=== PATIENT | male | born 1965 | race Caucasian/White ===

== ENCOUNTER → 2023-12-03 12:30 | Outpatient (REF) | payer BC, SELFPAY | LOC: MRI 3T 12:30 | PROVIDERS: ATTENDING PHYSICIAN Specialist | DX: C61 Malignant neoplasm of prostate (principal) | CPT/HCPCS: 72197; A9575 ==

== ENCOUNTER 2024-05-10 06:13 | Day surgery (SDC) | payer BC, SELFPAY ==
[2024-05-02 08:52] VITALS: BMI 28.3
[2024-05-02 10:19] LABS: Hematocrit 46.2 % (39.0-52.0); Hemoglobin 16.1 g/dL (13.0-18.0); Mean Corp Hgb Conc. 34.8 g/dL (33.0-37.0); Mean Corpuscular Hgb 30.4 pg (27.0-31.0); Mean Corpuscular Volume 87.2 fL (80.0-94.0); Mean Platelet Volume 8.8 fL (7.4-10.4); Platelet Count 224 10^3/uL (130-400); White Blood Cell Count 4.9 10^3/uL (4.8-10.8)
[2024-05-02 10:20] LABS: Urine Albumin Negative (Neg - Trace); Urine Bilirubin Negative (Negative); Urine Character Clear (Clear); Urine Color Yellow; Urine Glucose Negative (Negative); Urine Ketone Trace (Negative); Urine Leukocyte Negative (Negative); Urine Nitrite Negative (Negative); Urine Occult Blood Negative (Negative); Urine Specific Gravity 1.025 (<1.030); Urine Urobilinogen Negative (Neg - 1+)
[2024-05-02 10:31] LABS: APTT 28.5 Sec (23.4-35.0); INR 1.08; PT 13.8 Sec (11.4-14.6)
[2024-05-02 10:52] LABS: Blood Urea Nitrogen 24 mg/dl (9-20); Calcium 9.4 mg/dl (8.4-10.2); Carbon Dioxide 29 mmol/L (22-30); Chloride 101 mmol/L (98-107); Estimated Creatinine Clearance 95 ml/min; Glucose 104 mg/dl (70-99); Potassium 4.5 mmol/L (3.5-5.1); Sodium 140 mmol/L (135-145); eGFR > 60.00
--- NOTE | 2024-05-05 09:25 | CM ---
Patient is scheduled for a Robotic Prostatectomy on 05/10/24. Spoke with patient prior to surgery via telephone to complete case management assessment and assess for discharge planning needs. Patient reports that he lives with his in a two story
home. There are no steps to enter and a flight of steps to the second floor. The is a full bathroom on the first floor He currently functions independently. He has no DME and has never had VN services. He has a prescription plan and uses [facility] in
[facility].
Patient is currently in between PCP's and is seeing a PA at [facility] (Tova Scruggs, [place] [phone]). he has an appointment in July with a new PCP.
Discussed discharge plans. Patient plans to return home at discharge. He states that he will have support from his when he goes home. Discussed possible need for VN services and he would be in agreement with these services; he has no preference
for an agency to provide services.
[2024-05-10] VITALS (13 sets, daily range): BP systolic 10–134; BP diastolic 64–85; BMI 28.3
[2024-05-10] MEDS: NEOMYCIN ENEMA 1 BOTTLE RECTAL (06:42)
[2024-05-10] MEDS: NORMOSOL-R 1000 IV ×3 (06:42→22:00)
--- NOTE | 2024-05-10 14:31 | PTCARENOTE ---
Patient received from PACU in bed; Patient on 2L NC with oxygen saturation of 97%, patient transitioned to room air with oxygen saturation of 95%; Patient states pain is mild and acceptable for him; Patient denies nausea/vomiting; Left lower
quadrant GOLDEN drain with sanguinous output, dressing intact; Four lap sites with xeroform, telfa pad, and tegaderm with scant serosanguineous output; Patient drowsy but awakes to voice; Patient alert to self, place, and time; Call freitas within reach;
Bed in lowest position, wheels locked; Assessment ongoing
[2024-05-10] MEDS: COLACE 100 MG PO (16:02)
[2024-05-10] MEDS: TORADOL 15 MG IV ×2 (17:39→23:39)
[2024-05-10] MEDS: POLYSPORIN/DOUBLE ANTIBIOTIC 1 APPLIC TOPICAL (20:25)
[2024-05-11 03:51] VITALS: BP 110/59
[2024-05-11 05:53] LABS: Hematocrit 34.1 % (39.0-52.0); Hemoglobin 12.4 g/dL (13.0-18.0); Mean Corp Hgb Conc. 36.4 g/dL (33.0-37.0); Mean Corpuscular Hgb 30.8 pg (27.0-31.0); Mean Corpuscular Volume 84.8 fL (80.0-94.0); Mean Platelet Volume 9.1 fL (7.4-10.4); Platelet Count 204 10^3/uL (130-400); Red Blood Cell Count 4.02 10^6/uL (4.70-6.10); Red Cell Dist. Width 11.9 % (11.5-14.5); White Blood Cell Count 9.5 10^3/uL (4.8-10.8)
[2024-05-11] MEDS: NORMOSOL-R 1000 IV (06:00)
[2024-05-11] MEDS: TORADOL 15 MG IV (06:00)
[2024-05-11 06:08] LABS: Blood Urea Nitrogen 18 mg/dl (9-20); Calcium 8.1 mg/dl (8.4-10.2); Carbon Dioxide 27 mmol/L (22-30); Chloride 103 mmol/L (98-107); Estimated Creatinine Clearance 119 ml/min; Glucose 138 mg/dl (70-99); Potassium 4.4 mmol/L (3.5-5.1); Sodium 136 mmol/L (135-145); eGFR > 60.00
[2024-05-11] MEDS: COLACE 100 MG PO (07:20)
[2024-05-11] MEDS: CRESTOR 10 MG PO (07:20)
[2024-05-11] MEDS: ZESTRIL 10 MG PO (07:20)
[2024-05-11] MEDS: POLYSPORIN/DOUBLE ANTIBIOTIC 1 APPLIC TOPICAL (07:20)
[2024-05-11 07:54] VITALS: BP 117/69
--- NOTE | 2024-05-11 09:06 | W.PN.URO.CBU ---
Today's Communication / Plan
-
discharge
Assessment / Plan
-
stable
Diagnosis
-
Date of Service: May 11, 2024
-
Patient Diagnosis: prostate cancer
Post Op Day: 1 s/p robotic prostatectomy
Subjective
-
expected abd/pelvic discomfort
Objective
-
Vital Signs
Temp Pulse Resp BP Pulse Ox
98.7 F 70 18 117/69 98
05/11/24 07:54 05/11/24 07:54 05/11/24 07:54 05/11/24 07:54 05/11/24 07:54
Intake and Output
05/10/24 05/11/24 05/12/24
06:59 06:59 06:59
Intake Total 3800 / 3800
Output Total 4115 / 4115
Balance -315 / -315
Intake:
Oral fluids 1600 / 1600
IV fluids (Total) 2200 / 2200
normosol 200 / 200
Output:
Drain Output (Total) 165 / 165
Left Lower Abdomen J Carlos- 165 / 165
Varma
Urine, Quesada 3950 / 3950
Laboratory Results
05/11/24 05:07
05/11/24 05:07
Physical Exam
-
General - well developed, well nourished, no acute distress
Chest - clear bilaterally
Abdomen - soft, positive bowel sounds; GOLDEN --> removed
Genitalia - yellow urine via Quesada
--- NOTE | 2024-05-11 09:51 | CM ---
Reviewed the chart notes. Patient for discharge to home today. Spouse will provide transportation. [facility] will follow.
Gisselle
[2024-05-11 19:50] LABS: Hepatitis C Antibody Negative (Negative)
== END 2024-05-11 11:12 | disposition home or self-care (01) ==
LOC: SDS 06:13
PROVIDERS: ATTENDING PHYSICIAN Specialist
DX: C61 Malignant neoplasm of prostate (principal)
CPT/HCPCS: 55866; 38571; 51990; 88305; 88307; 88309; 36415; 80048; 81003; 85027; 85610; 85730; 86803; 93005; C1729

== ENCOUNTER 2024-05-20 18:34 | Inpatient (IN) | payer BC, SELFPAY ==
[2024-05-20] VITALS (7 sets, daily range): BP systolic 103–121; BP diastolic 64–78; BMI 28.5; BMI 27.9
--- NOTE | 2024-05-20 12:18 | ED.GENMED ---
History of Present Illness
General
Chief Complaint: Male Genito-Urinary Symptoms
Time Seen by Provider: 05/20/24 12:07
History of Present Illness
History of Present Illness:
58-year-old male presents the emergency department for evaluation of lower abdominal pain, fever, and inability to empty his bladder beginning yesterday. He is status post prostatectomy robotic assisted on May 10, Quesada catheter was removed
yesterday morning. He notes leakage of urine over the course of the morning increasing spasm type pain of the lower abdomen. Also notes increased fluid in the testicles or scrotum.
Past History
Past History
ED Past Medical History: HTN, Hypercholesterolemia and Valvular disease (Mitral regurgitation)
ED Past Surgical History: Other (tooth extraction)
Social History
Personal: Other ()
Living: with family
Employment: Employed
Review of Systems
Review of Systems
Allergies reviewed?: Yes
All Other Systems: ROS reviewed and negative except as documented in HPI and ROS
Phy Exam
Physical Exam
Physical Exam:
GEN: Well appearing, NAD, WDWN
Eyes: PERRLA, EOMs intact, no scleral icterus
HENT: NCAT, oral mucosa moist
Lungs: CTAB, no wheezes, rales, rhonchi, normal chest wall excursion
Cardiac: Tachycardic, regular
Abdomen: Abdomen soft, mild suprapubic tenderness. Well-approximated laparoscopic incisional sites to the mid abdomen, moderate ecchymosis about the abdomen. No rigidity or peritoneal signs
: Moderate edema diffusely to the scrotum, no scrotal tenderness, no perineal tenderness or bogginess
Neuro: AO x 3
MSK: No gross deformity or ecchymosis. No edema. No digital clubbing
Skin: No rashes, petechiae. Normal color, no pallor or jaundice.
Psych: Calm, cooperative, proper hygiene
Course
Orders/Labs/Results
Orders:
Orders
05/20/24 12:16
CT Abd/Pel (IV only)-DH only Urgent
Comment:
Reason For Exam: fever, abd pain, post prostatectomy
Bladder Scan- Treatment ONCE
05/20/24 12:27
Complete Blood Count/With Diff Urgent
Comprehensive Metabolic Panel Urgent
Lactic Acid Q4H
Comment: CANCEL 2nd LACTIC ACID IF 1st LACTIC ACID IS LESS THAN 2
Manual Differential Urgent
Blood Culture Routine
DAWNA Source: Blood/Venous
Specimen Description:
Blood Culture Urgent
DAWNA Source: Blood/Venous
Specimen Description:
05/20/24 12:33
HYDROmorphone [Dilaudid] 0.5 mg IV NOW STA
05/20/24 12:35
Urinalysis Reflex To Culture Urgent
Date Specimen was Collected: 05/20/24
Time Specimen was Collected: 12:27
Urine Microscopic Reflex Cult Urgent
Urine Culture Urgent
DAWNA Source: U
Specimen Description:
Date Specimen was Collected: 05/20/24
Time Specimen was Collected: 12:27
05/20/24 13:30
0.9% Sodium Chloride 1000 ml [Nss] 1,000 ml IV BOLUS
05/20/24 14:27
Gentamicin Sulfate [Gentamicin] 200 mg 0.9% Sodium Chloride [Nss] 50 ml IV NOW
05/20/24 16:30
Lactic Acid Q4H
Comment: CANCEL 2nd LACTIC ACID IF 1st LACTIC ACID IS LESS THAN 2
Abnormal Lab Results
05/20/24 05/20/24
12:27 12:35
WBC 16.5 H 10^3/uL
(4.8-10.8)
RBC 4.56 L 10^6/uL
(4.70-6.10)
Hct 38.8 L %
(39.0-52.0)
Abs Neuts (Manual) 15.8 H 10^3/uL
(1.4-6.5)
Segmented Neutrophils 82 H %
(42-75)
Band Neutrophils 14 H %
(0-3)
Lymphocytes (Manual) 1 L %
(20-51)
Sodium 134 L mmol/L
(135-145)
BUN 30 H mg/dl
(9-20)
Glucose 166 H mg/dl
(70-99)
Lactic Acid 2.4 H mmol/L
(0.7-2.0)
Urine Ketones Trace A
(Negative)
Ur Occult Blood Reflex 4+ A
(Negative)
Urine Bilirubin 1+ A
(Negative)
Leukocyte Esterase Rfl 1+ A
(Negative)
Urine RBC 30-40 A /HPF
(0-2)
Urine Bacteria (Reflex) Moderate A
(Negative)
Urine Yeast Few A
(Negative)
Urine Albumin (Reflex) 2+ A
(Neg - Trace)
05/20/24 12:27
05/20/24 12:27
Vital Signs
Initial and Last Documented VS:
Initial Vital Signs
Temp Pulse Resp BP Pulse Ox
98.9 F 99 18 121/64 100
05/20/24 10:39 05/20/24 10:39 05/20/24 10:39 05/20/24 10:39 05/20/24 10:39
Last Documented Vital Signs
Temp Pulse Resp BP Pulse Ox
98.9 F 99 18 103/72 94
05/20/24 10:39 05/20/24 10:39 05/20/24 10:39 05/20/24 13:00 05/20/24 13:30
MDM/Problems Addressed
MDM/Problems Addressed:
Group reveals severe sepsis evidenced by lactic acidosis and leukocytosis. Multiple fluid collection seen on CT scan suggestive of hematoma versus urinoma versus seroma versus abscess. Patient started on broad-spectrum antibiotics. Initial
straight cath performed for urinalysis, after discussion with urology further catheterization attempts deferred to specialist consult. Will admit to the hospitalist service for further management
*Critical Care Note
Total Time (30-74mins, 75-104mins- exclusive of procedures): Not Applicable
ED Attending Note
-
Portions of this chart may have been created with voice recognition software.� Occasional wrong word or��sound alike� substitutions may have occurred due to the inherent limitations of voice recognition software.
Discharge Plan
Departure
Patient Disposition: Admit
Date of Disposition: 05/20/24
Time of Disposition: 15:11
Admit to: Med/Surg
Presentation/result/management discussed w/ accepting MD/DO: Hospitalist
Discharge Problem:
Intra-abdominal fluid collection, Severe sepsis
Prescriptions:
No Action
lisinopril 10 mg Tablet
10 mg PO DAILY
rosuvastatin 10 mg Tablet
10 mg PO DAILY
magnesium 200 mg Tablet
800 mg PO DAILY
[place] 3 With D3
1 tab PO DAILY
sildenafil 100 mg Tablet
100 mg PO DAILYPRN PRN (Reason: ED)
Theragen Tablet
1 tab PO DAILY
Visbiome 112.5 billion cell Capsule
1 cap PO DAILY
turmeric 400 mg Capsule
400 mg PO DAILY
tramadol 50 mg tablet
50 mg PO TIDPRN PRN (Reason: severe pain)
naproxen sodium [All Day Pain Relief] 220 mg tablet
440 mg PO BIDPRN PRN (Reason: mild pain)
Referrals:
NONE,* [Family Provider] -
Interventions
Interventions:
*Risk Screen - Suicide Last Done: 05/20/24 12:19
*General Assessment Last Done: 05/20/24 12:19
*Neglect/Abuse Screening Last Done: 05/20/24 12:19
ED- Fall Risk Assessment Last Done: 05/20/24 14:41
*ED COVID-19 Vaccine History Last Done: 05/20/24 12:19
ED-Male Genitourinary Assessment Last Done: 05/20/24 12:19
Discharge Date and Time
Print Language: GREENLANDIC
[2024-05-20] MEDS: DILAUDID 0.5 MG IV (12:34)
[2024-05-20 13:06] LABS: Hematocrit 38.8 % (39.0-52.0); Hemoglobin 13.9 g/dL (13.0-18.0); Mean Corp Hgb Conc. 35.8 g/dL (33.0-37.0); Mean Corpuscular Hgb 30.5 pg (27.0-31.0); Mean Corpuscular Volume 85.1 fL (80.0-94.0); Mean Platelet Volume 8.7 fL (7.4-10.4); Platelet Count 303 10^3/uL (130-400); Red Blood Cell Count 4.56 10^6/uL (4.70-6.10); White Blood Cell Count 16.5 10^3/uL (4.8-10.8)
[2024-05-20 13:10] LABS: Lactic Acid 2.4 mmol/L (0.7-2.0)
[2024-05-20 13:11] LABS: ALT (SGPT) 19 U/L (0-50); AST (SGOT) 23 U/L (17-59); Albumin 4.3 g/dl (3.5-5.0); Alkaline Phosphatase 52 U/L (38-126); Blood Urea Nitrogen 30 mg/dl (9-20); Calcium 9.2 mg/dl (8.4-10.2); Carbon Dioxide 27 mmol/L (22-30); Chloride 101 mmol/L (98-107); Estimated Creatinine Clearance 79 ml/min; Glucose 166 mg/dl (70-99); Potassium 4.6 mmol/L (3.5-5.1); Sodium 134 mmol/L (135-145); eGFR > 60.00
[2024-05-20] MEDS: NSS 1000 IV (13:35)
[2024-05-20 13:42] LABS: Absolute Neutrophils -Man Diff 15.8 10^3/uL (1.4-6.5); Band Neutrophils 14 % (0-3); Lymphocytes 1 % (20-51); Monocytes 3 % (2-9); Segmented Neutrophils 82 % (42-75)
[2024-05-20 13:43] LABS: Normal RBC Morphology Yes; Platelets Checked Yes; Total Cells Counted 100
[2024-05-20 13:47] LABS: Total Protein 6.5 g/dl (6.3-8.2)
[2024-05-20 13:51] LABS: Urine Albumin 2+ (Neg - Trace); Urine Bilirubin 1+ (Negative); Urine Character Slightly Cloudy (Clear); Urine Color Amber; Urine Glucose Negative (Negative); Urine Ketone Trace (Negative); Urine Leukocyte 1+ (Negative); Urine Nitrite Negative (Negative); Urine Occult Blood 4+ (Negative); Urine Urobilinogen 1+ (Neg - 1+)
[2024-05-20 14:02] LABS: Urine Mucus Few
[2024-05-20 14:03] LABS: Urine Red Blood Cell 30-40 /HPF (0-2); Urine Squamous Cell 0-2 /LPF (Few)
[2024-05-20 14:04] LABS: Urine Bacteria Moderate (Negative); Urine Yeast Few (Negative)
[2024-05-20] MEDS: GENTAMICIN 55 MG IV (15:22)
--- NOTE | 2024-05-20 18:00 | W.PN.UPDATE ---
Update Note
Progress Note Update
I personally performed a history and physical exam of the patient and discussed management with the resident. I reviewed the resident's note and agree with the documented findings and plan of care HPI/CC.
58-year-old gentleman who had a robotic prostatectomy for prostate cancer 10 days ago presents with fever chills. He also had difficulty voiding after catheter was removed yesterday in the urologist office. He was also complaining of abdominal
pain with some nausea yesterday. Abdominal pain was moderate to severe. He feels his abdomen is bloated and distended. Bowel movement 2 days ago. Prior to that he had a bowel movement presurgery. He is not on any laxative regimen.
Afebrile here but tachycardic. Apparently had a fever when checked at home. Chest clear heart sounds S1 plus S2 heard with tachycardia. No murmur.
Abdomen distended with no obvious tenderness. No rebound guarding rigidity. Bowel sounds hyperactive. Mild scrotal swelling noted.
White count elevated with bandemia. Creatinine normal.
CT of the abdomen pelvis shows extraperitoneal collection in the surgical area. Rim-enhancing collections. He also has ascending colon stools with distention of the ascending colon which is redundant.
Clinical concern of sepsis. Suspected sec postsurgical collection/abscess. Started on empirical Zosyn. Culture urine and bloodstream. Consult ID and urology.
Urinary retention-got Quesada catheter placed in the ER by urology.
Possible colonic ileus. Patient without any obstructive symptoms but he has distention with fecal burden and colonic dilatation.No colonic wall thickening. Keep on clear liquids for now. Start on a bowel regimen.
Full code.
[2024-05-20] MEDS: ZOSYN 50 IV (18:26)
--- NOTE | 2024-05-20 18:29 | HPS.HSE ---
Family Physician
-
Family Physician: * NONE
Chief Complaint
-
fever, nausea, scrotal pain and swelling
History of Present Illness
Patient is a 58-year-old male status post prostatectomy (05/10/24) who had his Quesada catheter removed yesterday at Dr. Cuello's office. He returned from the office at 2 PM. Patient had noticed increase swelling of scrotum on (05/18) but
did not have any other symptoms at that time. He had tried to lay down against gravity to decrease the swelling. Yesterday evening, he started having extreme pain (9 out of 10) in his lower abdomen.
He noticed increased swelling and redness of his scrotum and it was very sensitive to touch with occasional muscle spasms in the groin area. He also mentiones dry heaves, fever, and diaphoresis throughout the night. States tramadol did not help
with the pain. Next morning, when his took his temperature it was above 100F. Patient was able to void a couple of times after removing his Quesada catheter but feels he was not able to fully empty his bladder. He also mentions urinary urgency
and going to the bathroom every 1-2 hours. Denies burning sensation with urination and any purulent discharge. His last bowel movement was 2 days ago and before that it was 4 days ago.
He was SIRS positive upon admission in the ED. Abdominal CT scan shows large 12.4 cm rim-enhancing enhancing extraperitoneal fluid collection anterior to the urinary bladder and 3.9 cm rim-enhancing enhancing intraperitoneal fluid collection in the
pelvic cul-de-sac. Diagnostic possibilities are (1) ABSCESSES in the setting of fever, (2) aseptic seromas or (3) urinomas. Also signs of colon ileus.
Medical History
Past Medical History
Past Medical History: Reports HTN, Hypercholesterolemia and Other
Additional Past Medical History:
Kidney stone, prostate cancer
Past Surgical History: Reports Urological (Prostatectomy)
Additional Past Surgical History:
Prostatectomy
Social History
Alcohol: Occasional
Drug: None
Personal:
Living: With Family
Employment: Employed
Family History
Family History: Not pertinent
Allergies / Home Medications
Allergies reflects when Allergies were last updated in [facility].
Home Medications with original date entered in [facility]
Allergy/Medication List:
Allergies
Allergy/AdvReac Type Severity Reaction Status Date / Time
No Known Allergies Allergy Unverified 05/09/24 08:41
Home Medications
[place] 3 With D3 1 tab PO DAILY 05/09/24
lisinopril 10 mg tablet 10 mg PO DAILY 05/09/24
magnesium 200 mg tablet 800 mg PO DAILY 05/09/24
rosuvastatin 10 mg tablet 10 mg PO DAILY 05/09/24
sildenafil 100 mg tablet 100 mg PO DAILYPRN PRN ED 05/09/24
Lactobac no.2-Bifidobac no.1-S. thermo 112.5 billion cell capsule (Visbiome) 1 cap PO DAILY 05/20/24
naproxen sodium 220 mg tablet (All Day Pain Relief) 440 mg PO BIDPRN PRN mild pain 05/20/24
therapeutic multivitamin 1 tab PO DAILY 05/20/24
tramadol 50 mg tablet 50 mg PO TIDPRN PRN severe pain 05/20/24
turmeric 400 mg capsule 400 mg PO DAILY 05/20/24
Review of Systems
-
History Source: Patient
A 12 point ROS was completed and negative except as noted: Yes
Abdomen/GI: Reports Nausea and Constipated
: Reports Urgency
Physical Exam
Vital Signs
Vital Signs
Temp Pulse Resp BP Pulse Ox
98.9 F 99 18 103/72 94
05/20/24 10:39 05/20/24 10:39 05/20/24 10:39 05/20/24 13:00 05/20/24 13:30
Physical Exam
General: Well Developed and Other (Mild distress)
HEENT: NormoCephalic and Anicteric
Respiratory: Clear and Non Labored Respirations
Cardiac: S1/S2 and Regular Rhythm
GI: Non Tender, Distended and Other (Multiple midline incisions)
Genito-urinary: Other (Scrotum extremely sensitive to touch-- erythema and moderate edema of scrotum--no abnormal discharge)
Musculoskeletal: No Edema
Neuro: Awake, Alert, Oriented and AO x 3
Hematologic/Lymphatic: No Lymphadenopathy
Psych: Calm
Laboratory Results
-
05/20/24 12:
05/20/24 12:
Laboratory Results
Lactic Acid 2.4 mmol/L (0.7-2.0) H 05/20/24 12:
Total Bilirubin 1.0 mg/dl (0.2-1.3) 05/20/24 12:
AST 23 U/L (17-59) 05/20/24 12:
ALT 19 U/L (0-50) 05/20/24 12:
Alkaline Phosphatase 52 U/L (38-126) 05/20/24 12:
Data Reviewed
-
Critical Care Time (in minutes): 40
Impression/Plan
-
IMPRESSION:
#Sepsis--most likely secondary to postsurgical collection/abscess.
#Colonic ileus
PLAN:
U/C, B/C
Zosyn, IV fluid
ID consult
Urology consult--Quesada catheter placed
Clear fluid diet for now
Pain medication as needed
MiraLAX, Colace
Milk magnesia as needed
Check BMP, CBC daily
DVT prophylaxis: Lovenox
CODE STATUS: Full code
[2024-05-20] MEDS: TYLENOL 650 MG PO (19:59)
[2024-05-20] MEDS: ZESTRIL 10 MG PO (20:00)
[2024-05-20] MEDS: MIRALAX 17 GRAMS PO (20:01)
[2024-05-20] MEDS: COLACE 100 MG PO (20:01)
[2024-05-20 20:17] LABS: Lactic Acid 2.3 mmol/L (0.7-2.0)
[2024-05-20] MEDS: MOTRIN 400 MG PO (21:07)
[2024-05-20] MEDS: LOVENOX 40 MG SC (21:07)
[2024-05-21] MEDS: NSS 1000 IV ×3 (00:27→21:02)
[2024-05-21] MEDS: ZOSYN 50 IV ×3 (00:28→11:05)
[2024-05-21 00:31] LABS: Lactic Acid 0.9 mmol/L (0.7-2.0)
[2024-05-21 03:46] VITALS: BP 102/59
[2024-05-21 05:27] LABS: Hematocrit 34.9 % (39.0-52.0); Mean Corp Hgb Conc. 34.4 g/dL (33.0-37.0); Mean Corpuscular Hgb 30.6 pg (27.0-31.0); Mean Platelet Volume 8.7 fL (7.4-10.4); Platelet Count 241 10^3/uL (130-400); Red Blood Cell Count 3.92 10^6/uL (4.70-6.10); Red Cell Dist. Width 12.4 % (11.5-14.5); White Blood Cell Count 12.3 10^3/uL (4.8-10.8)
[2024-05-21 05:40] VITALS: BMI 28.0
[2024-05-21 05:40] LABS: Blood Urea Nitrogen 29 mg/dl (9-20); Calcium 8.4 mg/dl (8.4-10.2); Carbon Dioxide 23 mmol/L (22-30); Chloride 103 mmol/L (98-107); Estimated Creatinine Clearance 95 ml/min; Glucose 121 mg/dl (70-99); Potassium 4.1 mmol/L (3.5-5.1); Sodium 133 mmol/L (135-145); eGFR > 60.00
[2024-05-21 07:15] VITALS: BP 110/65
[2024-05-21] MEDS: VISBIOME 1 CAP PO (08:41)
[2024-05-21] MEDS: MIRALAX 17 GRAMS PO (08:41)
[2024-05-21] MEDS: CRESTOR 10 MG PO (08:41)
[2024-05-21] MEDS: COLACE 100 MG PO ×2 (08:41→21:02)
[2024-05-21] MEDS: THERAGRAN 1 TABLET PO (08:43)
[2024-05-21 08:44] LABS: % Basophils 0.2 % (0-2); % Eosinophils 0.2 % (0-6); % Immature Granulocytes 0.6 % (0-0.5); % Lymphocytes 6.7 % (20.5-51.1); % Monocytes 6.2 % (1.7-9.3); % Neutrophils 86.1 % (42.2-75.2); Absolute Immature Granulocytes 0.1 10^3/uL (0-0.05); Absolute Lymphocytes 0.8 10^3/uL (1.2-3.4); Absolute Monocytes 0.8 10^3/uL (0.1-0.6); Absolute Neutrophils 10.6 10^3/uL (1.4-6.5); Nucleated Red Blood Cells % 0 % (-)
[2024-05-21] MEDS: ZESTRIL 10 MG PO (08:44)
[2024-05-21] MEDS: MOTRIN 400 MG PO ×3 (08:48→23:13)
--- NOTE | 2024-05-21 09:48 | W.PN.UPDATE ---
Update Note
Progress Note Update
I saw and evaluated the patient. I reviewed the resident�s note and agree with findings and plan as documented in the resident�s note.
Had a spike of fever yesterday . he did not feel well. He felt nauseous. He had some abdominal discomfort. Most of his symptoms today's scrotal discomfort
On clear liquids -after taking some of it is starting to become uneasy in the belly. No vomiting. Feels rumble in his belly but no BM ;thinks passed gas may be once.
Afebrile this morning. Hemodynamically stable. Not hypoxic.
Chest clear.
Abdomen still distended with hypoactive bowel sounds today. He has some tenderness in the lower abdomen more so in the suprapubic area. No rebound.
Sepsis with intra abdominal collection pos prostatectomy concerning for infectious collection as of now. Continue with antibiotics. Consider aspiration. ID n Uro following.
Colonic ileus -continue with clear liquids. Continue with laxative regimen. Add Dulcolax suppository today. Ambulate as able.
Total time spent on today's encounter was 52 minutes which included time spent in counseling the patient regarding diagnosis and treatment plan as listed above, goals of care, and symptom management. Case was discussed with nursing staff,
specialists . All labs and imaging personally reviewed by me. Remainder the time spent in detailed review of previous records, lab data, imaging, and other medical provider documentation.
--- NOTE | 2024-05-21 10:04 | W.PN.HOSP.TC ---
Today's Communication/Plan
-
ID consult-- continue Zosyn for now
Assessment / Plan
Assessment / Plan
58-year-old male s/p prostatectomy (05/10/24)
#Sepsis (POA)--most likely secondary to postsurgical collection/abscess.
-- U/C, B/C pending
-- Zosyn started yesterday--leukocytosis down trended
-- ID consult
-- Appreciate urology-Quesada catheter placed -immediate recovery of 350 ml of urine
-- Continue to monitor CBC, body temperature
-- Continue IV
-- Pain medication as needed
#Colonic ileus
--Colace and MiraLAX--has not had any bowel movement yet but able to pass gas
--Continue clear liquids
-- Avoid opioid pain med as much as possible
# Essential hypertension
-- No changes prior to admission--continue lisinopril
-- Blood pressure is monitored and controlled
# Hypercholesterolemia
Continue rosuvastatin
DVT prophylaxis Lovenox
CODE STATUS: Full code
Anticipated Discharge: 24 - 48 hours
Subjective/Interval History
-
Date of Service: May 21, 2024
Patient mentions his pain is adequately controlled. He developed 2 episodes of fever yesterday evening and 1 episode of vomiting. Symptoms have resolved as of this time. Has not had any bowel movements yet but does pass gas.
Objective Data
-
Labs:
Laboratory Results
05/21/24
04:37
WBC 12.3 H
Hgb 12.0 L
Hct 34.9 L
Plt Count 241 D
Sodium 133 L
Potassium 4.1
Chloride 103
Carbon Dioxide 23
BUN 29 H
Creatinine 1.0
Glucose 121 H
Calcium 8.4
Vital Signs:
Vital Signs
Temp Pulse Resp BP Pulse Ox
100.8 F H 77 16 110/65 98
05/21/24 10:00 05/21/24 08:44 05/21/24 07:15 05/21/24 08:44 05/21/24 07:15
I&O
05/20/24 05/21/24 05/22/24
06:59 06:59 06:59
Intake Total 1180 / 1180
Output Total 700 / 700
Balance 480 / 480
Review of Systems
-
History Source: Patient
All other systems: Reviewed and negative
Genitourinary: Reports Other (Scrotal swelling)
Physical Exam
-
General: Well Developed and No Apparent Distress
HEENT: Normocephalic and Moist Mucous Membranes
Respiratory: Clear to Auscultation
Cardiac: Regular Rhythm and S1/S2
GI: Normal Bowel Sounds and Distended
Genito-urinary: Other (Marked scrotal edema and erythema--sensitive to touch)
Musculoskeletal: No Edema
Skin: Warm and Dry
Neuro: Awake, Alert and Oriented
Psych: Calm
[2024-05-21] MEDS: DULCOLAX 10 MG RECTAL (11:01)
[2024-05-21] MEDS: ULTRAM 50 MG PO (11:14)
--- NOTE | 2024-05-21 11:42 | W.PN.URO.CBU ---
Today's Communication / Plan
-
Await blood and urine cultures
OOB as tolerated
Keep Quesada catheter
If no improvement in next 12-24 hours will plan to re-image abd/pelvis tomorrow with benefit of oral contrast
Might ultimately need percutaneous fluid collect drainage
Will keep NPO after midnight
Assessment / Plan
-
Deep pelvic fluid collections suggestive of hematoma
Pre-vesical fluid collection suggestive of urinoma v. lymphocele; possibly infected
Fever with improved leukocytosis
Probable ileus
Diagnosis
-
Date of Service: May 21, 2024
-
Patient Diagnosis:
s/p robotic assisted radical prostatectomy w/ bilateral pelvic lymphadenectomy05/10/24
Probable urinoma v. lymphocele: possibly infected
Suspect developing ileus
Scrotal edema: improved
Abdominal pain: diffuse/persistent
Blood and urine cultures pending
Subjective
-
Little to no flatus
Uncomfortable
No more 'bladder spasms'
Objective
-
Vital Signs
Temp Pulse Resp BP Pulse Ox
100.8 F H 77 16 110/65 98
05/21/24 10:00 05/21/24 08:44 05/21/24 07:15 05/21/24 08:44 05/21/24 07:15
Intake and Output
05/20/24 05/21/24 05/22/24
06:59 06:59 06:59
Intake Total 1180 / 1180
Output Total 700 / 700
Balance 480 / 480
Intake:
Oral fluids 480 / 480
IV fluids (Total) 600 / 600
IV piggybacks 100 / 100
Output:
Urine, Quesada 700 / 700
Laboratory Results
05/21/24 04:37
05/21/24 04:37
Review of Systems
-
Constitutional: Fever and Fatigue
Respiratory: No Symptoms
Cardiac: No Symptoms
Abdomen/GI: Abdominal Pain
Neurological: No Symptoms
Physical Exam
-
General - well developed, well nourished, uncomfortable
Abdomen - Incisions clean/dry, distended and now a bit tympanitic, tender
Genitalia - decreased scrotal edema, Quesada draining lashae urine
Skin - warm & dry with no rash
Neuro - AOx3, no motor deficits
Counseling
-
Plan to re-image tomorrow if no clinical improvement
[2024-05-21 15:15] VITALS: BP 109/61
--- NOTE | 2024-05-21 16:08 | CM ---
CM reviewed medical records. Patient lives independently with . Patient is known to [facility].Patient is active with his PCP>
PLAN: home with [facility]
--- NOTE | 2024-05-21 16:19 | CON.ID ---
Consultation
-
Date/Time Consultation Requested: 05/20/24 19:20
Date/Time Consultation Performed: 05/21/24 16:20
Requesting Provider: Dr Salomon
Performing Provider: Dr Roberts
Reason for Consultation: prostatic abscess
Chief Complaint / Past History
Chief Complaint
fever, nausea, scrotal pain and swelling
History of Present Illness
Mr Fregoso is a 58 year old male with history of prostatectomy 05/10/24, cardona catether removal 05/19 who presented here for increasing scrotal swelling since 05/18 (the day before removal). He began with pain 05/19 in the scrotum and abdomen and
progressed to fevers, chills, diaphoresis, urinary urgency/frequency. No dysuria or purulent urine. Was initially able to void but later with sensation of incomplete emptying.
Since arrival here he has been febrile to 102.6 - now improving, bp overall stable, initial wbc 16 now 12, hgb 12, plt 241, L shift is noted, cr 1.0, lactic acid initially 2.4 now 0.9, ua 30-40 rbcs, 6-10 wbcs, moderate bacteria and few yeast, 05/20
CT a/p: 'Recent robotic prostatectomy with a 3.8 cm irregular shaped soft tissue mass in the prostatectomy surgical bed which could be a hematoma or residual prostate tissue. 2. Large 12.4 cm rim-enhancing enhancing extraperitoneal fluid
collection anterior to the urinary bladder and 3.9 cm rim-enhancing enhancing intraperitoneal fluid collection in the pelvic cul-de-sac. Diagnostic possibilities are (1) ABSCESSES in the setting of fever, (2) aseptic seromas or (3) urinomas....small
complex asccites, hepatic steatosis...ileus'
Past History
Additional Past Medical History:
HTN, Hypercholesterolemia
Additional Past Surgical History:
Kidney stone, prostate cancer
Allergy History:
No Known Allergies Allergy (Unverified 05/09/24 08:41)
Medications Reviewed: Yes
Social History
Alcohol: Occasional
Drug: None
Personal:
Family History
Family History: Not Pertinent
Review of Systems
Review of Systems
General: Fever and Chills
All systems: All other systems were reviewed and were negative
Vital Signs
Temp Pulse Resp BP Pulse Ox
99.6 F 81 16 109/61 96
05/21/24 15:15 05/21/24 15:15 05/21/24 15:15 05/21/24 15:15 05/21/24 15:15
Physical Exam
Physical Exam
Constitutional: No Acute Distress
Cardiovascular: Regular Rate and S1/S2; Negative Murmur or Rub
Pulmonary: Clear and Symmetric; Negative Wheezes, Rales or Rhonchi
Gastrointestinal: Soft, Tender (even with very light tough), Distended (mildly) and Normal Bowel Sounds
Genito-Urinary: Suprapubic Tenderness
Skin: Warm and Dry; Negative Rash or Jaundice
Wound: Other (5 port sites, the right most is a bit erythematous with slough in the center - not frankly dehisced or draining at this time, )
Lab / Diagnostic Study Results
05/21/24 04:37
05/21/24 04:37
Abs Immat Gran (auto) 0.1 10^3/uL (0-0.05) H 05/21/24 04:37
Absolute Neuts (auto) 10.6 10^3/uL (1.4-6.5) H 05/21/24 04:37
Absolute Lymphs (auto) 0.8 10^3/uL (1.2-3.4) L 05/21/24 04:37
Absolute Monos (auto) 0.8 10^3/uL (0.1-0.6) H 05/21/24 04:37
Absolute Basos (auto) 0.0 10^3/uL (0-0.2) 05/21/24 04:37
Total Counted 100 05/20/24 12:27
Immature Gran % 0.6 % (0-0.5) H 05/21/24 04:37
Neutrophils % 86.1 % (42.2-75.2) H 05/21/24 04:37
Lymphocytes % 6.7 % (20.5-51.1) L 05/21/24 04:37
Monocytes % 6.2 % (1.7-9.3) 05/21/24 04:37
Eosinophils % 0.2 % (0-6) 05/21/24 04:37
Basophils % 0.2 % (0-2) 05/21/24 04:37
Abs Neuts (Manual) 15.8 10^3/uL (1.4-6.5) H 05/20/24 12:27
Segmented Neutrophils 82 % (42-75) H 05/20/24 12:27
Band Neutrophils 14 % (0-3) H 05/20/24 12:27
Lymphocytes (Manual) 1 % (20-51) L 05/20/24 12:27
Lactic Acid 0.9 mmol/L (0.7-2.0) 05/21/24 00:13
Ur Squamous Epith Cells 0-2 /LPF (Few) 05/20/24 12:35
Microbiology Results
Micro:
05/20/24 12:27 Blood Culture - Preliminary
Blood/Venous No Growth in 24 hours- Final report to follow
05/20/24 12:27 Blood Culture - Preliminary
Blood/Venous No Growth in 24 hours- Final report to follow
05/20/24 12:35 Urine Culture - Preliminary
Urine Gram negative bacilli
Assessment / Plan
Probable Intraabdominal Abscess
Recent robotic prostatectomy
- abscesses greater than 2 cm in any dimension not likely to respond to medical management alone due to poor antibiotic penetration, would be concerned for risk of relapse/progression even with antibiotics
- favor drainage of the 12.4 cm collection with aerobic/anaerobic cultures (aerobic would grow yeast as well) and sampling/drainage/cultures if possible of the 3.8 cm collection in the surgical bed
- UA with bacteria and yeast
- urine culture with 100K GNR thus far
- given that additional cultures from the suspected abscesses may be obtained tomorrow and patient is clinically stable, would hold off on adding yeast coverage at this time to maximize cultures
- qtc recently 414
- agree with zosyn at this time - increased dose to 4.5 gm iv q6 hrs
- follow clinically
[2024-05-21] MEDS: LOVENOX 40 MG SC (17:09)
[2024-05-21] MEDS: ZOSYN 100 IV ×2 (18:14→23:13)
--- NOTE | 2024-05-21 18:44 | W.PN.SURGUPD ---
Surgical Update
Surgical Update
Patient remains uncomfortable, but clinically stable
No significant flatus
Urine is growing a GNR
Blood cultures are negative to date
---
Will keep NPO after midnight and repeat CT scan tomorrow with IV and oral contrast
If patient fails to improve clinically and prevesical collection is larger or unchanged he might certainly benefit from percutaneous drainage: agree with Dr Roberts
[2024-05-21] MEDS: SENOKOT 8.6 MG PO (21:02)
[2024-05-21] MEDS: TYLENOL 650 MG PO (21:03)
[2024-05-21 23:05] VITALS: BP 106/59
[2024-05-22] MEDS: ZOSYN 100 IV ×4 (05:39→23:06)
[2024-05-22] MEDS: NSS 1000 IV (05:42)
[2024-05-22 07:59] VITALS: BP 108/70
[2024-05-22] MEDS: CRESTOR 10 MG PO (08:10)
[2024-05-22] MEDS: ZESTRIL 10 MG PO (08:11)
[2024-05-22] MEDS: COLACE 100 MG PO (08:11)
[2024-05-22] MEDS: THERAGRAN 1 TABLET PO (08:11)
[2024-05-22] MEDS: OMNIPAQUE 50 ML PO (08:11)
[2024-05-22] MEDS: VISBIOME 1 CAP PO (08:11)
[2024-05-22] MEDS: MIRALAX 17 GRAMS PO (08:11)
[2024-05-22 08:17] LABS: Hemoglobin 11.7 g/dL (13.0-18.0); Mean Corp Hgb Conc. 34.4 g/dL (33.0-37.0); Mean Corpuscular Hgb 30.5 pg (27.0-31.0); Mean Corpuscular Volume 88.8 fL (80.0-94.0); Mean Platelet Volume 8.7 fL (7.4-10.4); Platelet Count 226 10^3/uL (130-400); Red Blood Cell Count 3.83 10^6/uL (4.70-6.10); Red Cell Dist. Width 12.5 % (11.5-14.5); White Blood Cell Count 13.4 10^3/uL (4.8-10.8)
[2024-05-22] MEDS: ULTRAM 50 MG PO ×2 (08:20→15:40)
[2024-05-22 08:40] LABS: Blood Urea Nitrogen 20 mg/dl (9-20); Calcium 8.5 mg/dl (8.4-10.2); Carbon Dioxide 28 mmol/L (22-30); Chloride 106 mmol/L (98-107); Estimated Creatinine Clearance 106 ml/min; Glucose 132 mg/dl (70-99); Sodium 136 mmol/L (135-145); eGFR > 60.00
--- NOTE | 2024-05-22 09:18 | W.PN.ID1 ---
Addendum entered and electronically signed by Anabell Roberts MD 05/22/24 14:13:
I saw and evaluated the patient. I reviewed the resident�s note and agree with findings and plan as documented in the resident�s note with the following additions/corrections:
S: ongoing lower abdominal and particularly scrotal pain
PIVs nontender
tolerating current therapy
O:
Gen: nontoxic
GI: mildly distended, tender in the bilateral lower quadrants
: scrotum red, warm, tender, worse on the R>L, no focal tenderness over the epididymitis
labs as below
in addition:
Urine Culture Final 05/22/24-850
CC: Greater than 100,000 CFU/ML Pseudomonas aeruginosa
Organism 1 Pseudomonas aeruginosa
1. Pseudomonas aeruginosa
M.I.C. RX
--------- ---
Cefepime <=2 S
Ceftazidime 4 S
Ciprofloxacin <=0.25 S
Levofloxacin <=0.5 S
Meropenem <=1 S
Piperacillin/Tazobactam <=16 S
Tobramycin <=[address] a/p with IV and oral contrast today:
increased size of the anterior extraperitoneal fluid collection, less likely urinomas, air tracking to right scrotum, moderatecolonic stool,
A&P:Probable Intraabdominal Abscess
Recent robotic prostatectomy
- abscesses greater than 2 cm in any dimension not likely to respond to medical management alone due to poor antibiotic penetration, would be concerned for risk of relapse/progression even with antibiotics, there is slight progression even with
broad spectrum coverage - discussed with Dr Silva today
- favor drainage of the 12.4 cm collection with aerobic/anaerobic cultures and sampling/drainage/cultures if possible of the 3.8 cm collection in the surgical bed
- UA with bacteria and yeast
- urine culture with 100K Pseudomonas - sensitive to zosyn
- given that additional cultures from the suspected abscesses may be obtained tomorrow and patient is clinically stable, would hold off on adding yeast coverage at this time to maximize cultures
- qtc recently 414
- continue with zosyn which is currently maximized and dosed appropriately for Pseudomonas
- add fluconazole 400 mg qday
- follow clinically
- follow clinically
Original Note:
Date of Service
Date of Service: May 22, 2024
Today's Communication
Continue IV abx,
Will need drainage of collections
Assessment / Plan
Intraabdominal Abscess
Recent robotic prostatectomy
- abscesses greater than 2 cm in any dimension not likely to respond to medical management alone due to poor antibiotic penetration, would be concerned for risk of relapse/progression even with antibiotics
- favor drainage of the 12.9cm (enlarged from 12.4 cm) collection with aerobic/anaerobic cultures (aerobic would grow yeast as well) and sampling/drainage/cultures if possible of the 5.2cm (enlarged from 3.8 cm) collection in the surgical bed
- UA with bacteria and yeast
- urine culture with >100K pseudomonas
- Will consider yeast coverage based on cultures of intraabdominal collections
- qtc recently 414
- continue zosyn based on susceptibility - increased dose to 4.5 gm iv q6 hrs
- follow clinically
Chief Complaint
-: Fever and Other (Scrotal pain, urinary frequency/urgency)
Subjective / Review of Systems
Fever overnight, peak 101.6F
Review of Systems: Fever and Other (groin/scrotal pain )
Vital Signs / Physical Exam
Vital Signs
Vital Signs
Temp Pulse Resp BP Pulse Ox
99.5 F 81 16 108/70 96
05/22/24 07:59 05/22/24 08:11 05/22/24 07:59 05/22/24 08:11 05/22/24 07:59
Physical Exam
Constitutional: Comfortable
Cardiovascular: Regular Rate and S1/S2; Negative Murmur
Gastrointestinal: Tender (tender mass/fullness palpated in LLQ), Distended, Decreased Bowel Sounds, No Rebound, No Guarding and Other (abdominal incisions noted on abdomen, steri-strips in place. No drainage. Some erythema of one incision on right
abdomen noted. )
Genito-Urinary: Quesada, Suprapubic Tenderness, Clear Urine and Other (Swollen, tender, erythematous scrotum, more tender/swollen on right vs left)
Skin: Warm and Dry
Neurological: Awake, Alert and Oriented
Psychological: Calm
Objective Data
Lab Data
Lab Results
05/22/24 08:07
05/22/24 08:07
Estimated Creat Clear 106 ml/min 05/22/24 08:07
Lactic Acid 0.9 mmol/L (0.7-2.0) 05/21/24 00:13
Total Bilirubin 1.0 mg/dl (0.2-1.3) 05/20/24 12:27
AST 23 U/L (17-59) 05/20/24 12:27
ALT 19 U/L (0-50) 05/20/24 12:27
Alkaline Phosphatase 52 U/L (38-126) 05/20/24 12:27
Most recent labs reviewed.
Micro Results:
05/20/24 12:35 Urine Culture - Final
Urine Pseudomonas aeruginosa
05/20/24 12:27 Blood Culture - Preliminary
Blood/Venous No Growth in 24 hours- Final report to follow
05/20/24 12:27 Blood Culture - Preliminary
Blood/Venous No Growth in 24 hours- Final report to follow
--- NOTE | 2024-05-22 10:02 | W.PN.SURGUPD ---
Surgical Update
Surgical Update
Patient is a bit more comfortable today
Had a BM yesterday
CT scan today to re-image abdomen and pelvis
---
Patient now has evidence of right epididymorchitis on exam
Follow cultures
[2024-05-22 13:30] VITALS: BP 125/74; PULSE 93; O2SAT 96
[2024-05-22] MEDS: MOTRIN 400 MG PO ×2 (13:33→22:12)
[2024-05-22 15:20] VITALS: BP 111/71
[2024-05-22] MEDS: DIFLUCAN 400 MG 200 IV (15:41)
--- NOTE | 2024-05-22 16:26 | CM ---
Patient seen at bedside with physician. Patient stated that he was hoping to return home with . Patient is currently active with [facility] and wants to restart with them. Patient for IR today. CM will continue to follow for discharge planning needs.
Plan; home with [facility]
[2024-05-22 16:42] VITALS: BMI 28.0
--- NOTE | 2024-05-22 16:51 | W.PN.UPDATE ---
Update Note
Progress Note Update
D/w pt and at bedside situation.
Agreed to have IRad drain pre-vesical fluid collection in AM.
--- NOTE | 2024-05-22 17:02 | W.PN.HOSP.TC ---
Addendum entered and electronically signed by Farideh Phillips MD 05/22/24 19:55:
I saw and evaluated the patient independently. I reviewed the resident�s note and agree with findings and plan as documented by Dr. Theodore.
GENERAL: well developed, well nourished, male in no apparent distress
HEENT: NC/AT
HEART: regular rate and rhythm, +S1, +S2
LUNGS : clear to auscultation bilaterally
ABDOM: soft, nontender, nondistended, + bowel sounds
EXT: no cyanosis, clubbing, or edema
NEUROLOGIC: grossly intact
: cardona in place--scrotum very tender to touch and red
Lower abdominal pain + fever--U/C positive for pseudomonas aeruginosa, B/C no growth in 48 hours--Zosyn started - leukocytosis down trended yesterday. WBC increased to 13.4 today---Abd CT w IV and oral contrast, collection measuring 12.9 cm in the
anterior extraperitoneal space and another collection measuring 5.2 cm in the pelvic cul-de-sac. likely represent seromas versus abscesses--apprec ID/urology--drainage by IR in AM---Pain medication as needed
Colonic ileus-Colace and MiraLAX-had a bowel movement at noon. Patient notes an episode of diarrhea at 3.30 pm. patient does not feel naseous, no abdominal pain. no abdominal tenderness---Avoid opioid pain med as much as possible--advance diet
Essential hypertension--No changes prior to admission-continue lisinopril--Blood pressure is monitored and controlled
Hypercholesterolemia--Continue rosuvastatin
DVT prophylaxis Lovenox
CODE STATUS: Full code
Original Note:
Today's Communication/Plan
-
-Irad drain for prevesicular collection schdeuled for tomorrow.
-Fluconazole added.
Assessment / Plan
Assessment / Plan
58-year-old male s/p prostatectomy (05/10/24)
Lower abdominal pain + fever
-U/C positive for pseudomonas aeruginosa, B/C no growth in 48 hours
-Zosyn started - leukocytosis down trended yesterday. WBC increased to 13.4 today
-Abd CT w IV and oral contrast - collection measuring 12.9 cm in the anterior extraperitoneal space and another collection measuring 5.2 cm in the pelvic cul-de-sac. likely represent seromas versus abscesses.
-ID Consult - continue zosyn. add fluconazole. consider drainage of prevesicular collection due to poor antibiotic penetration.
-Patient scheduled to have collection drained tomorrow by IRad.
-Urine was clear this morning but appears to be serosanguineous this afternoon.
-Continue to monitor CBC, body temperature
-Pain medication as needed
Colonic ileus
-Colace and MiraLAX-had a bowel movement at noon. Patient notes an episode of diarrhea at 3.30 pm. patient does not feel naseous, no abdominal pain. no abdominal tenderness.
-Consider full liquid diet.
-Avoid opioid pain med as much as possible
Essential hypertension
-No changes prior to admission-continue lisinopril
-Blood pressure is monitored and controlled
Hypercholesterolemia
Continue rosuvastatin
DVT prophylaxis Lovenox
CODE STATUS: Full code
Anticipated Discharge: > 48 hours
Subjective/Interval History
-
Date of Service: May 22, 2024
Objective Data
-
Labs:
Laboratory Results
05/22/24
08:07
WBC 13.4 H
Hgb 11.7 L
Hct 34.0 L
Plt Count 226
Sodium 136
Potassium 4.0
Chloride 106
Carbon Dioxide 28
BUN 20
Creatinine 0.9
Glucose 132 H
Calcium 8.5
Vital Signs:
Vital Signs
Temp Pulse Resp BP Pulse Ox
99.5 F 81 16 108/70 96
05/22/24 07:59 05/22/24 08:11 05/22/24 07:59 05/22/24 08:11 05/22/24 07:59
I&O
05/21/24 05/22/24 05/23/24
06:59 06:59 06:59
Intake Total 1180 / 1180 3990 / 3990
Output Total 700 / 700 1924
Balance 480 / 480 2064
Review of Systems
-
History Source: Patient
All other systems: Reviewed and negative
Genitourinary: Reports Other (Scrotal swelling)
Physical Exam
-
General: Well Developed and No Apparent Distress
HEENT: Normocephalic and Moist Mucous Membranes
Respiratory: Clear to Auscultation
Cardiac: Regular Rhythm and S1/S2
GI: Normal Bowel Sounds and Distended
Genito-urinary: Other (Right greater than left scrotl swelling and redness )
Musculoskeletal: No Edema
Skin: Warm and Dry
Neuro: Awake, Alert and Oriented
Psych: Calm
[2024-05-22] MEDS: LOVENOX 40 MG SC (17:25)
[2024-05-22] MEDS: COLACE PO (22:20)
[2024-05-22] MEDS: SENOKOT PO (22:20)
[2024-05-22 23:10] VITALS: BP 119/71
[2024-05-23] VITALS (13 sets, daily range): BP systolic 77–141; BP diastolic 66–84
[2024-05-23] MEDS: ZOSYN 100 IV ×4 (05:25→23:31)
[2024-05-23] MEDS: MOTRIN 400 MG PO ×2 (05:31→20:46)
[2024-05-23 06:54] LABS: % Basophils 0.2 % (0-2); % Eosinophils 2.7 % (0-6); % Immature Granulocytes 0.3 % (0-0.5); % Lymphocytes 11.5 % (20.5-51.1); % Monocytes 6.4 % (1.7-9.3); % Neutrophils 78.9 % (42.2-75.2); Absolute Eosinophils 0.2 10^3/uL (0-0.7); Absolute Monocytes 0.6 10^3/uL (0.1-0.6); Absolute Neutrophils 6.9 10^3/uL (1.4-6.5); Hematocrit 32.2 % (39.0-52.0); Mean Corp Hgb Conc. 34.2 g/dL (33.0-37.0); Mean Corpuscular Hgb 30.6 pg (27.0-31.0); Mean Corpuscular Volume 89.4 fL (80.0-94.0); Nucleated Red Blood Cells % 0 % (-); Platelet Count 253 10^3/uL (130-400); Red Cell Dist. Width 12.3 % (11.5-14.5); White Blood Cell Count 8.7 10^3/uL (4.8-10.8)
[2024-05-23 06:56] LABS: Blood Urea Nitrogen 17 mg/dl (9-20); Calcium 8.4 mg/dl (8.4-10.2); Carbon Dioxide 26 mmol/L (22-30); Chloride 107 mmol/L (98-107); Estimated Creatinine Clearance 86 ml/min; Glucose 109 mg/dl (70-99); Sodium 138 mmol/L (135-145); eGFR > 60.00
[2024-05-23] MEDS: COLACE PO ×2 (08:34→20:43)
[2024-05-23] MEDS: MIRALAX PO (08:34)
[2024-05-23] MEDS: THERAGRAN 1 TABLET PO (08:35)
[2024-05-23] MEDS: CRESTOR 10 MG PO (08:35)
[2024-05-23] MEDS: VISBIOME 1 CAP PO (08:35)
[2024-05-23] MEDS: ZESTRIL 10 MG PO (08:36)
--- NOTE | 2024-05-23 08:51 | PN.CDI ---
CDI
- -
CDI:
Physician Documentation Request
Admit Date: 05/20/24 18:34
Dear Doctor Jacqueline,
Please review the following and provide your response in the progress notes.
Clinical Indicators:
Pt admitted with Severe sepsis with Probable Intraabdominal Abscess Recent robotic prostatectomy May 10
Documented per ED , ' ...Evaluation of lower abdominal pain, fever, and inability to empty his bladder beginning yesterday. He is status post prostatectomy robotic assisted on May 10, Quesada catheter was removed yesterday morning.'
Documented per progress note 05/22, ' Lower abdominal pain + fever--U/C positive for pseudomonas aeruginosa...Zosyn started ...'
Progress note ID 05/22, ' UA with bacteria and yeast urine culture with 100K Pseudomonas - sensitive to zosyn..'
Please provide a diagnosis for the above Urine culture findings/treatment of IV Zosyn:
UTI due to recent indwelling Quesada catheter
UTI only
Other (please specify)
Use of terms such as suspected, likely, concern for, or probable (associated with a specific diagnosis that is being evaluated, monitored, or treated as if it exists) are acceptable and can be coded in the inpatient setting, when documented at the
time of discharge.
Thank you,
Annetta Perez RN
CDI Specialist
[facility]
Please use your independent medical judgment in providing your response.
[2024-05-23 09:34] LABS: INR 1.21; PT 15.1 Sec (11.4-14.6)
--- NOTE | 2024-05-23 11:40 | W.PN.HOSP.TC ---
Addendum entered and electronically signed by Farideh Phillips MD 05/23/24 18:20:
I saw and evaluated the patient independently. I reviewed the resident�s note and agree with findings and plan as documented by Dr. Theodore.
GENERAL: well developed, well nourished, male in no apparent distress
HEENT: NC/AT
HEART: regular rate and rhythm, +S1, +S2
LUNGS : clear to auscultation bilaterally
ABDOM: soft, nontender, nondistended, + bowel sounds
EXT: no cyanosis, clubbing, or edema
NEUROLOGIC: grossly intact
: cardona in place--scrotum very tender to touch and red
Lower abdominal pain + fever--urine positive for pseudomonas aeruginosa (not related to urinary catheter--specimen collected prior to catheter being placed), blood culture no growth in 48 hours-- cont Zosyn - leukocytosis down---Abd CT w IV and
oral contrast, collection measuring 12.9 cm in the anterior extraperitoneal space and another collection measuring 5.2 cm in the pelvic cul-de-sac. likely represent seromas versus abscesses--apprec ID/urology--s/p drainage by IR (cultures
ordered)--Pain medication as needed
Colonic ileus--Colace and MiraLAX--had a bowel movement at noon. Patient notes an episode of diarrhea at 3.30 pm. patient does not feel nauseous, no abdominal pain. no abdominal tenderness---Avoid opioid pain med as much as possible--advance diet
Essential hypertension--No changes prior to admission--continue lisinopril--Blood pressure is monitored and controlled
Hypercholesterolemia--Continue rosuvastatin
DVT prophylaxis Lovenox
CODE STATUS: Full code
Original Note:
Today's Communication/Plan
-
drainage of prevesicle collection by IRad.
Suggested scrotal elevation
Continue antibiotics
Continue to monitor blood count
Assessment / Plan
Assessment / Plan
58-year-old male s/p prostatectomy (05/10/24)
Lower abdominal pain + fever
-U/C positive for pseudomonas aeruginosa, B/C no growth in 72 hours
-Zosyn started - leukocytosis down trended. WBC 8.7 today
-Abd CT w IV and oral contrast - collection measuring 12.9 cm in the anterior extraperitoneal space and another collection measuring 5.2 cm in the pelvic cul-de-sac. likely represent seromas versus abscesses.
-ID consult - continue zosyn. continue fluconazole. consider drainage of 12.9 and 5.2 cm collection due to poor antibiotic penetration.
-Patient had collection drained today by IRad.
-Urine was clear this morning.
-Continue to monitor CBC, body temperature
-Pain medication as needed
Scotal pain
-scrotum red, warm, tender - CT showed collection of fluid in the scrotum. recommended scrotal elevation.
-pain when urinating. feels better today.
Colonic ileus
-Colace and MiraLAX-had a bowel movement at noon. Patient notes regular bowel movement today.
-Consider full liquid diet.
-Avoid opioid pain med as much as possible
Essential hypertension
-No changes prior to admission-continue lisinopril
-Blood pressure is monitored and controlled
Hypercholesterolemia
Continue rosuvastatin
DVT prophylaxis Lovenox
CODE STATUS: Full code
Anticipated Discharge: > 48 hours
Subjective/Interval History
-
Date of Service: May 23, 2024
Objective Data
-
Labs:
Laboratory Results
05/23/24 05/23/24
05:33 08:37
WBC 8.7
Hgb 11.0 L
Hct 32.2 L
Plt Count 253
PT 15.1 H
INR 1.21
Sodium 138
Potassium 4.0
Chloride 107
Carbon Dioxide 26
BUN 17
Creatinine 1.1
Glucose 109 H
Calcium 8.4
Vital Signs:
Vital Signs
Temp Pulse Resp BP Pulse Ox
98.0 F 71 16 119/69 96
05/23/24 07:25 05/23/24 07:25 05/23/24 07:25 05/23/24 08:36 05/23/24 10:11
I&O
05/22/24 05/23/24 05/24/24
06:59 06:59 06:59
Intake Total 3990 / 3990 1740 / 1740
Output Total 1925 / 1925 2775 / 2775
Balance 2064 / 2064 -1035 / -1035
Review of Systems
-
History Source: Patient
All other systems: Reviewed and negative
Genitourinary: Reports Other (Scrotal swelling)
--- NOTE | 2024-05-23 12:16 | W.PN.ID1 ---
Date of Service
Date of Service: May 23, 2024
Today's Communication
- favor drainage of the 12.9cm (enlarged from 12.4 cm) collection with aerobic/anaerobic cultures (aerobic would grow yeast as well) and sampling/drainage/cultures if possible of the 5.2cm (enlarged from 3.8 cm) collection in the surgical bed
- notified IR of the request to drain both areas if feasible and placed orders for aerobic and anaerobic culture
- continue zosyn 4.5 gm iv q6 hrs day 4
- continue flucaonzole day 2
Assessment / Plan
Intraabdominal Abscess
Recent robotic prostatectomy
R epididymoorchitis
- abscesses greater than 2 cm in any dimension not likely to respond to medical management alone due to poor antibiotic penetration, would be concerned for risk of relapse/progression even with antibiotics
- favor drainage of the 12.9cm (enlarged from 12.4 cm) collection with aerobic/anaerobic cultures (aerobic would grow yeast as well) and sampling/drainage/cultures if possible of the 5.2cm (enlarged from 3.8 cm) collection in the surgical bed
- notified IR of the request to drain both areas if feasible and placed orders for aerobic and anaerobic culture; unfortunately the deeper collection isnt accessible at this moment but can be reassessed with repeat CT scan in a few days -
transgluteal approach may be an option if needed
- UA with bacteria and yeast
- urine culture with >100K Pseudomonas
- qtc recently 414
- continue zosyn 4.5 gm iv q6 hrs day 4
- continue fluconazole day 2
- follow clinically
Chief Complaint
-: Fever and Other (Scrotal pain, urinary frequency/urgency)
Subjective / Review of Systems
improved fevers
bp stable
resolved leukocytosis
cr 1.1
urine culture 100K Pseuomonas
abdomen more distended, scrotum remains swollen, less red, still quite tender
Vital Signs / Physical Exam
Vital Signs
Vital Signs
Temp Pulse Resp BP Pulse Ox
98.0 F 71 16 119/69 96
05/23/24 07:25 05/23/24 07:25 05/23/24 07:25 05/23/24 08:36 05/23/24 10:11
Physical Exam
Constitutional: No Acute Distress
Cardiovascular: Regular Rate and S1/S2; Negative Murmur or Rub
Pulmonary: Clear and Symmetric; Negative Wheezes or Rales
Gastrointestinal: Soft, Non Tender, Distended and Normal Bowel Sounds
Genito-Urinary: Other (scrotum remains swollen, less red, still quite tender)
Skin: Warm and Dry; Negative Rash or Jaundice
Objective Data
Lab Data
Lab Results
05/23/24 05:33
05/23/24 05:33
PT 15.1 Sec (11.4-14.6) H 05/23/24 08:37
INR 1.21 05/23/24 08:37
Estimated Creat Clear 86 ml/min 05/23/24 05:33
Lactic Acid 0.9 mmol/L (0.7-2.0) 05/21/24 00:13
Total Bilirubin 1.0 mg/dl (0.2-1.3) 05/20/24 12:27
AST 23 U/L (17-59) 05/20/24 12:27
ALT 19 U/L (0-50) 05/20/24 12:27
Alkaline Phosphatase 52 U/L (38-126) 05/20/24 12:27
Most recent labs reviewed.
Micro Results:
05/20/24 12:27 Blood Culture - Preliminary
Blood/Venous No Growth in 48 hours- Final report to follow
05/20/24 12:27 Blood Culture - Preliminary
Blood/Venous No Growth in 48 hours- Final report to follow
05/20/24 12:35 Urine Culture - Final
Urine Pseudomonas aeruginosa
Care Review
Plan reviewed with: Physician (IR - collections)
[2024-05-23] MEDS: ULTRAM 50 MG PO (14:26)
--- NOTE | 2024-05-23 14:33 | PTCARENOTE ---
pt npo since midnight for IR procedure this afternoon. pt taken 1425 to IR via stretcher. prior to leaving the floor pt received prn tramadol for 8/10 scrotal and testicle pain. see MAR for proper documentation. pt receiving IV abx through [facility] site
for this nurse.
--- NOTE | 2024-05-23 16:01 | CM ---
Patient seen at bedside, plan for IR procedure today. CM will continue to follow for discharge planning needs.
Plan; home with [facility]
[2024-05-23] MEDS: DIFLUCAN 400 MG 200 IV (16:34)
[2024-05-23] MEDS: LOVENOX 40 MG SC (18:40)
[2024-05-23] MEDS: SENOKOT PO (20:47)
[2024-05-24] MEDS: ZOSYN 100 IV ×3 (06:06→18:39)
[2024-05-24 06:52] LABS: % Basophils 0.5 % (0-2); % Eosinophils 4.6 % (0-6); % Immature Granulocytes 0.5 % (0-0.5); % Lymphocytes 24.5 % (20.5-51.1); % Monocytes 9.3 % (1.7-9.3); % Neutrophils 60.6 % (42.2-75.2); Absolute Eosinophils 0.3 10^3/uL (0-0.7); Absolute Lymphocytes 1.4 10^3/uL (1.2-3.4); Absolute Monocytes 0.5 10^3/uL (0.1-0.6); Absolute Neutrophils 3.4 10^3/uL (1.4-6.5); Hematocrit 29.9 % (39.0-52.0); Hemoglobin 10.1 g/dL (13.0-18.0); Mean Corp Hgb Conc. 33.8 g/dL (33.0-37.0); Mean Corpuscular Hgb 29.8 pg (27.0-31.0); Mean Corpuscular Volume 88.2 fL (80.0-94.0); Mean Platelet Volume 8.9 fL (7.4-10.4); Nucleated Red Blood Cells % 0 % (-); Platelet Count 278 10^3/uL (130-400); Red Blood Cell Count 3.39 10^6/uL (4.70-6.10); Red Cell Dist. Width 12.2 % (11.5-14.5); White Blood Cell Count 5.7 10^3/uL (4.8-10.8)
[2024-05-24 07:15] LABS: Blood Urea Nitrogen 17 mg/dl (9-20); Calcium 8.2 mg/dl (8.4-10.2); Carbon Dioxide 26 mmol/L (22-30); Chloride 106 mmol/L (98-107); Estimated Creatinine Clearance 86 ml/min; Glucose 151 mg/dl (70-99); Potassium 3.7 mmol/L (3.5-5.1); Sodium 138 mmol/L (135-145); eGFR > 60.00
[2024-05-24 07:20] VITALS: BP 140/79
[2024-05-24] MEDS: VISBIOME 1 CAP PO (08:21)
[2024-05-24] MEDS: ZESTRIL 10 MG PO (08:21)
[2024-05-24] MEDS: COLACE PO ×2 (08:24→20:50)
[2024-05-24] MEDS: MIRALAX PO (08:24)
[2024-05-24] MEDS: CRESTOR 10 MG PO (08:24)
[2024-05-24] MEDS: THERAGRAN 1 TABLET PO (08:24)
--- NOTE | 2024-05-24 08:29 | W.PN.ID1 ---
Documented by User: Zaira Ignacio MD, Resident 05/24/24 16:33
Date of Service
Date of Service: May 24, 2024
Today's Communication
Continue IV abx, await cultures, follow clinically
Assessment / Plan
Intraabdominal seroma
Recent robotic prostatectomy
R epididymoorchitis
Status post CT-guided drainage of pelvic fluid collection.
- Abscesses greater than 2 cm in any dimension not likely to respond to medical management alone due to poor antibiotic penetration, would be concerned for risk of relapse/progression even with antibiotics
- favor drainage of the 12.9cm (enlarged from 12.4 cm) collection with aerobic/anaerobic cultures (aerobic would grow yeast as well) and sampling/drainage/cultures if possible of the 5.2cm (enlarged from 3.8 cm) collection in the surgical bed
- s/p CT guided drainage of anterior intraabdominal fluid collection. Unfortunately the deeper collection isn't accessible at this moment but can be reassessed with repeat CT scan in a few days - transgluteal approach may be an option if needed
- Pelvic fluid culture and gram stain: moderate WBC, no organisms seen. Aerobic cx pending.
- Scrotal mass reduced in size, tenderness and erythema improved on physical exam
- UA with bacteria and yeast
- urine culture with >100K Pseudomonas
- qtc recently 414
- continue zosyn 4.5 gm iv q6 hrs day 5
- continue fluconazole day 3
- follow clinically
Chief Complaint
-: Fever and Other (Scrotal pain, urinary frequency/urgency)
Subjective / Review of Systems
No fever overnight
CT-guided drainage of pelvic fluid collection yesterday by IR. 500ml Thin hemorrhagic fluid expelled.
Pt complains of clear drainage from urethra around cardona catheter
Pt notes some subjective improvement of abdominal and scrotal symptoms
Review of Systems: No Fever and Other (scrotal pain and swelling)
Vital Signs / Physical Exam
Vital Signs
Vital Signs
Temp Pulse Resp BP Pulse Ox
99.6 F 68 20 140/79 95
05/23/24 23:13 05/24/24 08:21 05/23/24 23:13 05/24/24 08:21 05/23/24 23:13
Physical Exam
Constitutional: No Acute Distress and Comfortable
Head: Normocephalic
Cardiovascular: Regular Rate and S1/S2; Negative Murmur, Rub or Peripheral Edema
Pulmonary: Clear and Non Labored; Negative Wheezes, Rales or Rhonchi
Gastrointestinal: Soft, Tender (moderate tenderness of LLQ), Distended and Other (J Carlos enrique drain with serosanguinous fluid, catheter in place in left suprapubic area)
Genito-Urinary: Cardona, Clear Urine and Other (Enlarged, tender, non-erythematous right scrotum)
Extremities: Negative Edema, Clubbing or Cyanosis
Skin: Warm and Dry
Wound: Other (Abdominal incisions intact, expected healing, with steri strips in place)
Neurological: Awake, Alert and Oriented
Psychological: Calm
Objective Data
Lab Data
Lab Results
05/24/24 04:41
05/24/24 04:41
PT 15.1 Sec (11.4-14.6) H 05/23/24 08:37
INR 1.21 05/23/24 08:37
Estimated Creat Clear 86 ml/min 05/24/24 04:41
Lactic Acid 0.9 mmol/L (0.7-2.0) 05/21/24 00:13
Total Bilirubin 1.0 mg/dl (0.2-1.3) 05/20/24 12:27
AST 23 U/L (17-59) 05/20/24 12:27
ALT 19 U/L (0-50) 05/20/24 12:27
Alkaline Phosphatase 52 U/L (38-126) 05/20/24 12:27
Most recent labs reviewed.
Micro Results:
05/23/24 16:06 Body Fluid Culture - Pending
Fluid Gram Stain - Preliminary
05/23/24 16:47 Wound Culture - Pending
Abdomen Gram Stain - Preliminary
05/23/24 16:47 Anaerobic Culture - Pending
Abdomen
05/23/24 12:37 Anaerobic Culture - Pending
Abscess
05/20/24 12:27 Blood Culture - Preliminary
Blood/Venous No Growth in 72 hours- Final report to follow
05/20/24 12:27 Blood Culture - Preliminary
Blood/Venous No Growth in 72 hours- Final report to follow
05/20/24 12:35 Urine Culture - Final
Urine Pseudomonas aeruginosa

Documented by User: Anabell Roberts MD 05/24/24 13:21
Assessment / Plan
Intraabdominal Abscess
Recent robotic prostatectomy
R epididymoorchitis
Status post CT-guided drainage of pelvic fluid collection.
- Not stable for dc
- Advise against removal of drain until fluid output is consistently < 20 ccs per day x3 days; output today thus far is 225 ccs - if drain is removed early expect relapse
- plan to reimagine the cul de sac pelvic collection Wednesday to reassess if there is an approachable route for drainage. Size is somewhat concerning. IR has previously commented that if no improvement a transgluteal approach may be feasible.
- UA with bacteria and yeast
- urine culture with >100K Pseudomonas
- body fluid - GNR
- qtc recently 414
- continue zosyn 4.5 gm iv q6 hrs day 5
- continue fluconazole day 3
- follow clinically
--- NOTE | 2024-05-24 08:33 | PTCARENOTE ---
Messaged Dr. Silva [phone]. Patient requesting to see urologist with questions about cardona. It is marked that there is a significant amount of leakage around the insertion site as well. Made aware.
--- NOTE | 2024-05-24 09:19 | W.PN.HOSP.TC ---
Addendum entered and electronically signed by Farideh Phillips MD 05/24/24 14:02:
I saw and evaluated the patient independently. I reviewed the resident�s note and agree with findings and plan as documented by Dr. Theodore.
GENERAL: well developed, well nourished, male in no apparent distress
HEENT: NC/AT
HEART: regular rate and rhythm, +S1, +S2
LUNGS : clear to auscultation bilaterally
ABDOM: soft, nontender, nondistended, + bowel sounds
EXT: no cyanosis, clubbing, or edema
NEUROLOGIC: grossly intact
: cardona in place--scrotum very tender to touch and red, less so
pseudomonas aeruginosa UTI (not related to urinary catheter--specimen collected prior to catheter being placed), blood culture no growth in 48 hours-- cont Zosyn - leukocytosis down---Abd CT c/w abscess--s/p IR drainage, cultures pending--apprec
ID/urology--s/p drainage by IR (cultures ordered)--Pain medication as needed
Colonic ileus--Colace and MiraLAX---Avoid opioid pain med as much as possible--advance diet--resolved
Essential hypertension--No changes prior to admission--continue lisinopril--Blood pressure is monitored and controlled
Hypercholesterolemia--Continue rosuvastatin
DVT prophylaxis Lovenox
CODE STATUS: Full code
Original Note:
Today's Communication/Plan
-
Awaiting cultures
Urology consult -Cardona catheter to be removed
Continue antibiotics
Assessment / Plan
Assessment / Plan
58-year-old male s/p prostatectomy (05/10/24). Scrotal swelling better compared to yesterday. Drain output 375 cc (serosanguineous). Notes leakage from Cardona catheter.
Pelvic fluid collection
-Abd CT w IV and oral contrast - collection measuring 12.9 cm in the anterior extraperitoneal space and another collection measuring 5.2 cm in the pelvic cul-de-sac. likely represent seromas versus abscesses.
-Patient had collection drained by IRad.
-ID consult - continue zosyn. continue fluconazole. Awaiting cultures.
-Pain medication as needed
Likely UTI
-U/C positive for pseudomonas aeruginosa, B/C no growth in 72 hours
-Zosyn started - leukocytosis down trended. WBC 5.7 today
-ID consult - continue zosyn. continue fluconazole. Awaiting cultures.
-Patient had collection drained by IRad.
-Urine was clear this morning.
-Continue to monitor CBC, body temperature
Scotal pain
-scrotum red, warm, tender - CT showed collection of fluid in the scrotum. recommended scrotal elevation. Less swollen than yesterday.
-pain when urinating. feels better today.
Colonic ileus
-Colace and MiraLAX-had a bowel movement at noon. Patient notes regular bowel movement today.
-Consider full liquid diet.
-Avoid opioid pain med as much as possible
Essential hypertension
-No changes prior to admission-continue lisinopril
-Blood pressure is monitored and controlled
Hypercholesterolemia
Continue rosuvastatin
DVT prophylaxis Lovenox
CODE STATUS: Full code
Anticipated Discharge: 24 - 48 hours
Subjective/Interval History
-
Date of Service: May 24, 2024
Objective Data
-
Labs:
Laboratory Results
05/24/24
04:41
WBC 5.7
Hgb 10.1 L
Hct 29.9 L
Plt Count 278
Sodium 138
Potassium 3.7
Chloride 106
Carbon Dioxide 26
BUN 17
Creatinine 1.1
Glucose 151 H
Calcium 8.2 L
Vital Signs:
Vital Signs
Temp Pulse Resp BP Pulse Ox
98.1 F 68 16 140/79 98
05/24/24 07:20 05/24/24 08:21 05/24/24 07:20 05/24/24 08:21 05/24/24 07:20
I&O
05/23/24 05/24/24 05/25/24
06:59 06:59 06:59
Intake Total 1740 / 1740 2390 / 2390
Output Total 2775 / 2775 2625 / 2625
Balance -1035 / -1035 -235 / -235 -
Review of Systems
-
History Source: Patient
All other systems: Reviewed and negative
Genitourinary: Reports Other (Scrotal swelling)
--- NOTE | 2024-05-24 10:44 | W.PN.URO.CBU ---
Today's Communication / Plan
-
Quesada out
drain uniil tomorrow
abx per ID
possible d/c in AM
Assessment / Plan
-
Pelvic fluid collections -- post op serosangunous fluids
Pseudomonal infection of lower genitourinary structures
Diagnosis
-
Date of Service: May 24, 2024
-
Patient Diagnosis:
Pseudomonal infection: lower genitourinary tract
Pre-and retrovesical fluid collections -- former drained percutaneously yesterday by IRad -- fluid appearance and gram stain do not indicate that this fluid is infected
Subjective
-
feeling better each day
bladder spasms -- cresencio-Quesada urine leakage
Objective
-
Vital Signs
Temp Pulse Resp BP Pulse Ox
98.1 F 68 16 140/79 98
05/24/24 07:20 05/24/24 08:21 05/24/24 07:20 05/24/24 08:21 05/24/24 07:20
Intake and Output
05/23/24 05/24/24 05/25/24
06:59 06:59 06:59
Intake Total 1740 / 1740 2390 / 2390
Output Total 2775 / 2775 2625 / 2625
Balance -1035 / -1035 -235 / -235 - / -30
Intake:
Oral fluids 1740 / 1740 1860 / 1860
IV fluids (Total)
IV piggybacks 500 / 500
Output:
Drain Output (Total) 375 / 375 /
Lower Abdomen Placed in IR 375 / 375 /
Urine, Quesada 2024 / 2249
Urine, Voided 750 / 750
Laboratory Results
05/24/24 04:41
05/24/24 04:41
Physical Exam
-
General - well developed, well nourished, no acute distress
Chest - clear bilaterally
Abdomen - soft, non-tender, positive bowel sounds, no distention; Drain: thinly bloody fluid
Genitalia - Quesada with yellow urine
Scrotum: enlarged epididymis on left
--- NOTE | 2024-05-24 12:23 | PTCARENOTE ---
Quesada cath removed 1153
[2024-05-24 15:15] VITALS: BP 139/84
--- NOTE | 2024-05-24 15:39 | CM ---
IV/AB, pending cultures. Therapy identified no needs. Patient has had [facility]. Will request resumption of [facility]N services after discharge.
--- NOTE | 2024-05-24 16:00 | W.PN.ID1 ---
Addendum entered and electronically signed by Anabell Roberts MD 05/24/24 17:16:
I saw and evaluated the patient. I reviewed the resident�s note and agree with findings and plan as documented in the resident�s note with the additions and corrections listed in my separate note today.
Original Note:
Date of Service
Date of Service: May 24, 2024
Today's Communication
Continue IV abx, continue J Carlos-Enrique drain, monitor fluid output
Assessment / Plan
Intraabdominal Abscess
Recent robotic prostatectomy 05/10
R epididymoorchitis
Status post CT-guided drainage of pelvic fluid collection 05/23
- Not stable for dc
- Advise against removal of drain until fluid output is consistently < 20 ccs per day x3 days; output today thus far is 225 ccs - if drain is removed early expect relapse
- plan to reimage the cul de sac pelvic collection Wednesday to reassess if there is an approachable route for drainage. Size is somewhat concerning. IR has previously commented that if no improvement a transgluteal approach may be feasible. Detailed
discussion with patient, understands plan going forward
- Epididimoorchitis likely from adjacent spread of infection and dependent pooling of intrabdominal fluid collection
- UA with bacteria and yeast
- urine culture with >100K Pseudomonas
- body fluid - gram -ve bacilli
- Anerobic culture pending
- qtc recently 414
- continue zosyn 4.5 gm iv q6 hrs day 5, pending detailed culture/sensitivities
- continue fluconazole day 3
- follow clinically
Chief Complaint
-: Fever and Other (Scrotal pain, urinary frequency/urgency)
Subjective / Review of Systems
Review of Systems: No Fever and Other (scrotal pain and swelling)
Vital Signs / Physical Exam
Vital Signs
Vital Signs
Temp Pulse Resp BP Pulse Ox
98.1 F 68 16 140/79 98
05/24/24 07:20 05/24/24 08:21 05/24/24 07:20 05/24/24 08:21 05/24/24 07:20
Physical Exam
Constitutional: No Acute Distress and Comfortable
Cardiovascular: Regular Rate and S1/S2; Negative Murmur, Rub or Peripheral Edema
Pulmonary: Clear and Non Labored; Negative Wheezes, Rales or Rhonchi
Gastrointestinal: Soft, Tender (moderate tenderness of LLQ), Distended, Normal Bowel Sounds and Other (J Carlos enrique drain with serosanguinous fluid, catheter in place in left suprapubic area)
Genito-Urinary: Other (Enlarged, tender, indurated, erythematous scrotum, R>L); Negative Quesada or Clear Urine
Extremities: Negative Edema or Cyanosis
Skin: Warm and Dry
Wound: None
Neurological: Awake, Alert and Oriented
Objective Data
Lab Data
Lab Results
05/24/24 04:41
05/24/24 04:41
PT 15.1 Sec (11.4-14.6) H 05/23/24 08:37
INR 1.21 05/23/24 08:37
Estimated Creat Clear 86 ml/min 05/24/24 04:41
Lactic Acid 0.9 mmol/L (0.7-2.0) 05/21/24 00:13
Total Bilirubin 1.0 mg/dl (0.2-1.3) 05/20/24 12:27
AST 23 U/L (17-59) 05/20/24 12:27
ALT 19 U/L (0-50) 05/20/24 12:27
Alkaline Phosphatase 52 U/L (38-126) 05/20/24 12:27
Most recent labs reviewed.
Micro Results:
05/23/24 16:06 Body Fluid Culture - Preliminary
Fluid Gram negative bacilli
Gram Stain - Preliminary
05/20/24 12:27 Blood Culture - Preliminary
Blood/Venous No Growth in 4 days- Final report to follow
05/20/24 12:27 Blood Culture - Preliminary
Blood/Venous No Growth in 4 days- Final report to follow
05/23/24 16:47 Wound Culture - Preliminary
Abdomen Gram Stain - Preliminary
05/23/24 12:37 Anaerobic Culture - Preliminary
Abscess Culture pending. Anaerobic cultures are examined after 3
days incubation. Additional information to follow.
05/23/24 16:47 Anaerobic Culture - Preliminary
Abdomen Culture pending. Anaerobic cultures are examined after 3
days incubation. Additional information to follow.
05/20/24 12:35 Urine Culture - Final
Urine Pseudomonas aeruginosa
[2024-05-24] MEDS: DIFLUCAN 400 MG 200 IV (16:38)
--- NOTE | 2024-05-24 16:59 | W.PN.ID1 ---
Date of Service
Date of Service: May 24, 2024
Today's Communication
not stable for dc, would not anticipate dc before wednesday at the earliest
drain to remain in placed - discussed with Dr Cuello who is in agreement
repeat imaging likely wednesday to reassess the second collection
continue zosyn and fluconazole at this time
Assessment / Plan
Intraabdominal Abscess
Recent robotic prostatectomy 05/10
R epididymoorchitis
Status post CT-guided drainage of pelvic fluid collection 05/23
- Not stable for dc
- Advise against removal of drain until fluid output is consistently < 20 ccs per day x3 days; output today thus far is 225 ccs
- plan to reimage the cul de sac pelvic collection Wednesday to reassess if there is an approachable route for drainage. Size is somewhat concerning. IR has previously commented that if no improvement a transgluteal approach may be feasible. Detailed
discussion with patient, understands plan going forward
- Epididimoorchitis likely from adjacent spread of infection and dependent pooling of intrabdominal fluid collection
- UA with bacteria and yeast
- urine culture with >100K Pseudomonas
- body fluid - GNR - suspect pseudomonas
- Anerobic culture pending
- qtc recently 414
- continue zosyn 4.5 gm iv q6 hrs day 5, pending detailed culture/sensitivities
- continue fluconazole day 3
- follow clinically
Chief Complaint
-: Fever and Other (Scrotal pain, urinary frequency/urgency)
Subjective / Review of Systems
afebrile
still with scrotal swelling and tenderness
20 min conversation with patient re: diagnoses and next steps
Vital Signs / Physical Exam
Vital Signs
Vital Signs
Temp Pulse Resp BP Pulse Ox
98.1 F 68 16 140/79 98
05/24/24 07:20 05/24/24 08:21 05/24/24 07:20 05/24/24 08:21 05/24/24 07:20
Physical Exam
Constitutional: No Acute Distress
Cardiovascular: Regular Rate and S1/S2; Negative Murmur or Rub
Pulmonary: Clear and Symmetric; Negative Wheezes or Rales
Gastrointestinal: Soft, Non Tender, Distended and Normal Bowel Sounds
Genito-Urinary: Other (scrotum swollen, R>L, mildly red, tender)
Skin: Warm and Dry; Negative Rash or Jaundice
Objective Data
Lab Data
Lab Results
05/24/24 04:41
05/24/24 04:41
PT 15.1 Sec (11.4-14.6) H 05/23/24 08:37
INR 1.21 05/23/24 08:37
Estimated Creat Clear 86 ml/min 05/24/24 04:41
Lactic Acid 0.9 mmol/L (0.7-2.0) 05/21/24 00:13
Total Bilirubin 1.0 mg/dl (0.2-1.3) 05/20/24 12:27
AST 23 U/L (17-59) 05/20/24 12:27
ALT 19 U/L (0-50) 05/20/24 12:27
Alkaline Phosphatase 52 U/L (38-126) 05/20/24 12:27
Most recent labs reviewed.
Micro Results:
05/23/24 16:06 Body Fluid Culture - Preliminary
Fluid Gram negative bacilli
Gram Stain - Preliminary
05/20/24 12:27 Blood Culture - Preliminary
Blood/Venous No Growth in 4 days- Final report to follow
05/20/24 12:27 Blood Culture - Preliminary
Blood/Venous No Growth in 4 days- Final report to follow
05/23/24 16:47 Wound Culture - Preliminary
Abdomen Gram Stain - Preliminary
05/23/24 12:37 Anaerobic Culture - Preliminary
Abscess Culture pending. Anaerobic cultures are examined after 3
days incubation. Additional information to follow.
05/23/24 16:47 Anaerobic Culture - Preliminary
Abdomen Culture pending. Anaerobic cultures are examined after 3
days incubation. Additional information to follow.
05/20/24 12:35 Urine Culture - Final
Urine Pseudomonas aeruginosa
[2024-05-24] MEDS: LOVENOX 40 MG SC (18:06)
[2024-05-24] MEDS: SENOKOT PO (20:50)
[2024-05-24 23:17] VITALS: BP 138/79
[2024-05-25] MEDS: ZOSYN 100 IV ×5 (00:21→23:56)
[2024-05-25] MEDS: MOTRIN 400 MG PO ×3 (00:30→15:42)
--- NOTE | 2024-05-25 04:44 | W.PN.HOSP.TC ---
Addendum entered and electronically signed by Farideh Phillips MD 05/25/24 16:04:
I saw and evaluated the patient independently. I reviewed the resident�s note and agree with findings and plan as documented by Dr. Theodore.
GENERAL: well developed, well nourished, male in no apparent distress
HEENT: NC/AT
HEART: regular rate and rhythm, +S1, +S2
LUNGS : clear to auscultation bilaterally
ABDOM: soft, nontender, nondistended, + bowel sounds
EXT: no cyanosis, clubbing, or edema
NEUROLOGIC: grossly intact
: cardona removed
pseudomonas aeruginosa UTI with pseudomonas pelvic abscess (not related to urinary catheter--specimen collected prior to catheter being placed), blood culture no growth in 48 hours-- cont Zosyn - leukocytosis down---Abd CT c/w abscess--s/p IR
drainage, cultures with pseudomonas--apprec ID/urology--s/p drainage by IR (cultures ordered)--Pain medication as needed--rescan Wednesday
Colonic ileus--Colace and MiraLAX---Avoid opioid pain med as much as possible--advance diet--resolved
Essential hypertension--No changes prior to admission--continue lisinopril--Blood pressure is monitored and controlled
Hypercholesterolemia--Continue rosuvastatin
DVT prophylaxis Lovenox
CODE STATUS: Full code
Original Note:
Today's Communication/Plan
-
Continue to monitor drainage
Continue antibiotics
Consult Case management
CT scan scheduled for tomorrow
Assessment / Plan
Assessment / Plan
58-year-old male s/p prostatectomy (05/10/24). Scrotal swelling better compared to yesterday. Drain output 780 cc by 2.20 pm (hemorrhagic). Cardona catheter removed.
Pelvic fluid collection
-Abd CT w IV and oral contrast - collection measuring 12.9 cm in the anterior extraperitoneal space and another collection measuring 5.2 cm in the pelvic cul-de-sac. likely represent seromas versus abscesses.
-Patient s/p collection drainage by IRad.
-ID consult - continue zosyn (Day 5). continue fluconazole (Day 4). Collection culture - pseudomonas, same pathogen as found in urine culture
-Pain medication as needed
-ID consult - Check Cr in collection specimen for seroma vs urinoma, reassess collection by abd/pelvis CT scan tomorrow
Likely UTI
-U/C positive for pseudomonas aeruginosa, B/C no growth in 72 hours
-Zosyn started - leukocytosis down trended. WBC 5.7 today
-ID consult - continue zosyn. continue fluconazole. Awaiting cultures. Fluid culture (preliminary): gram negative bacilli
-Patient had collection drained by IRad.
-Urine was clear this morning.
-Continue to monitor CBC, body temperature
Scotal pain
-scrotum red, warm, tender - CT showed collection of fluid in the scrotum. recommended scrotal elevation. Less swollen than yesterday.
-pain when urinating. feels better today.
Colonic ileus
-Colace and MiraLAX-had a bowel movement at noon. Patient notes regular bowel movement today.
-Consider full liquid diet.
-Avoid opioid pain med as much as possible
Essential hypertension
-No changes prior to admission-continue lisinopril
-Blood pressure is monitored and controlled
Hypercholesterolemia
Continue rosuvastatin
DVT prophylaxis Lovenox
CODE STATUS: Full code
Anticipated Discharge: > 48 hours
Subjective/Interval History
-
Date of Service: May 25, 2024
Objective Data
-
Labs:
Laboratory Results
05/25/24
06:00
WBC Pending
Hgb Pending
Hct Pending
Plt Count Pending
Sodium Pending
Potassium Pending
Chloride Pending
Carbon Dioxide Pending
BUN Pending
Creatinine Pending
Glucose Pending
Calcium Pending
Vital Signs:
Vital Signs
Temp Pulse Resp BP Pulse Ox
98.9 F 72 16 138/79 97
05/24/24 23:17 05/24/24 23:17 05/24/24 23:17 05/24/24 23:17 05/24/24 23:17
I&O
05/23/24 05/24/24 05/25/24
06:59 06:59 06:59
Intake Total 1740 / 1740 2390 / 2390 1200 / 1200
Output Total 2775 / 2775 2625 / 2625 345 / 345
Balance -1035 / -1035 -235 / -235 855 / 855
Review of Systems
-
History Source: Patient
All other systems: Reviewed and negative
Genitourinary: Reports Other (Scrotal swelling)
Physical Exam
-
General: Well Developed and No Apparent Distress
HEENT: Normocephalic and Moist Mucous Membranes
Respiratory: Clear to Auscultation
Cardiac: Regular Rhythm and S1/S2
GI: Normal Bowel Sounds and Distended
Genito-urinary: Other (Right greater than left scrotal swelling and redness, less tender and tense compared to yesterday )
Musculoskeletal: No Edema
Skin: Warm and Dry
Neuro: Awake, Alert and Oriented
Psych: Calm
[2024-05-25 07:20] VITALS: BP 140/84
--- NOTE | 2024-05-25 07:55 | W.PN.ID1 ---
Addendum entered and electronically signed by Anabell Roberts MD 05/25/24 12:16:
I saw and evaluated the patient. I reviewed the resident�s note and agree with findings and plan as documented in the resident�s note with the following additions and corrections. Case discussed with resident.
S: afebrile, no overnight events
Discussed at length with Dr Silva and later with patient
O:
drain output: >400 ccs yesterday and already >400 ccs tododay
VSS
Gen: No acute distress
GI: nontender, non distended, Madeleine drain in place now with scant serosanguinous fluid
: no cardona, scrotum remains swollen R>L mildly indurated and tender
Labs:
Body Fluid culture x2 few pseudomonas - note both of these are from the anterior pelvic collection
- both with Pseudomonas similar to the urine culture
- no yeast on gram stain or cultures
Fluid Cult/not urine Preliminary 05/25/24-915
Few Pseudomonas aeruginosa
Organism 1 Pseudomonas aeruginosa
1. Pseudomonas aeruginosa
M.I.C. RX
--------- ---
Cefepime <=2 S
Ceftazidime <=1 S
Ciprofloxacin <=0.25 S
Levofloxacin <=0.5 S
Meropenem <=1 S
Piperacillin/Tazobactam <=16 S
Tobramycin <=4 S
A&P:
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
Recent robotic prostatectomy 05/10
R epididymoorchitis
Status post CT-guided drainage of pelvic fluid collection 05/23
- Advise against removal of drain until fluid output is consistently < 20 ccs per day x3 days; output today remain high
- discussed with Dr Silva and sent body fluid to check for Cr; if Cr is found in the fluid then this would be an infected urinoma
- defer decisions re: cardona replacement to urology
- plan to reimage the cul de sac pelvic collection Wednesday to reassess if there is an approachable route for drainage. Size is somewhat concerning. IR has previously commented that if no improvement a transgluteal approach may be feasible. Deta
- urine culture with >100K Pseudomonas
- body fluid x2 - Pseudomonas
- Anaerobic culture pending
- qtc recently 414
- continue zosyn 4.5 gm iv q6 hrs day 6
- stop fluconazole - yeast have not been IDd in the cultures
- follow clinically
AW
Original Note:
Date of Service
Date of Service: May 25, 2024
Today's Communication
Continue abx, fluconazole. Continue drainage
Assessment / Plan
Intraabdominal Abscess
Recent robotic prostatectomy 05/10
R epididymoorchitis
Status post CT-guided drainage of pelvic fluid collection 05/23
- Not stable for dc
- Copious MADELEINE drainage. 780ml in last 24 hrs. Advise against removal of drain until fluid output is consistently < 20 ccs per day x3 days
- plan to reimage the cul de sac pelvic collection today/Wednesday to reassess if there is an approachable route for drainage. Size is somewhat concerning. IR has previously commented that if no improvement a transgluteal approach may be feasible.
Detailed discussion with patient, understands plan going forward.
- Epididimoorchitis likely from adjacent spread of infection and dependent pooling of intrabdominal fluid collection, Elevation helps.
- UA with bacteria and yeast
- urine culture with >100K Pseudomonas
- body fluid cx - Pseudomonas
- Anerobic culture pending
- qtc recently 414
- continue zosyn 4.5 gm iv q6 hrs day 6, can convert to PO therapy when stable. Consider Levofloxacin
- continue fluconazole day 4
- follow clinically
Chief Complaint
-: Fever and Other (Scrotal pain, urinary frequency/urgency)
Subjective / Review of Systems
-No fever in past 72 hours with no antipyretics
-copious discharge from MADELEINE drain, 780ml in past 24 hours
-Pt raises questions about little improvement in scrotal swelling, and plan to reimage fluid collection
Review of Systems: No Fever, No Chills, No Abdominal Pain and Other (scrotal swelling, tenderness)
Vital Signs / Physical Exam
Vital Signs
Vital Signs
Temp Pulse Resp BP Pulse Ox
98.9 F 72 16 138/79 97
05/24/24 23:17 05/24/24 23:17 05/24/24 23:17 05/24/24 23:17 05/24/24 23:17
Physical Exam
Cardiovascular: Regular Rate and S1/S2; Negative Murmur, Rub or Peripheral Edema
Pulmonary: Clear and Non Labored; Negative Wheezes, Rales or Rhonchi
Gastrointestinal: Soft, Non Tender, Distended and Other (hypoactive bowel sounds. MADELEINE drain with serosanguinous fluid, catheter in LLQ, insertion site nonerythematous)
Genito-Urinary: Other (scrotal swelling with tenderness R>L); Negative Cardona
Extremities: Negative Edema
Skin: Warm, Dry and Other (5 small healing laparoscopic abdominal incisions intact, steri strips in place. )
Neurological: Awake, Alert and Oriented
Psychological: Calm
Objective Data
Lab Data
PT 15.1 Sec (11.4-14.6) H 05/23/24 08:37
INR 1.21 05/23/24 08:37
Estimated Creat Clear 86 ml/min 05/24/24 04:41
Lactic Acid 0.9 mmol/L (0.7-2.0) 05/21/24 00:13
Total Bilirubin 1.0 mg/dl (0.2-1.3) 05/20/24 12:27
AST 23 U/L (17-59) 05/20/24 12:27
ALT 19 U/L (0-50) 05/20/24 12:27
Alkaline Phosphatase 52 U/L (38-126) 05/20/24 12:27
Most recent labs reviewed.
Micro Results:
05/23/24 16:06 Body Fluid Culture - Preliminary
Fluid Gram negative bacilli
Gram Stain - Preliminary
05/20/24 12:27 Blood Culture - Preliminary
Blood/Venous No Growth in 4 days- Final report to follow
05/20/24 12:27 Blood Culture - Preliminary
Blood/Venous No Growth in 4 days- Final report to follow
05/23/24 16:47 Wound Culture - Preliminary
Abdomen Gram Stain - Preliminary
05/23/24 12:37 Anaerobic Culture - Preliminary
Abscess Culture pending. Anaerobic cultures are examined after 3
days incubation. Additional information to follow.
05/23/24 16:47 Anaerobic Culture - Preliminary
Abdomen Culture pending. Anaerobic cultures are examined after 3
days incubation. Additional information to follow.
05/20/24 12:35 Urine Culture - Final
Urine Pseudomonas aeruginosa
[2024-05-25 08:07] LABS: Blood Urea Nitrogen 21 mg/dl (9-20); Calcium 8.7 mg/dl (8.4-10.2); Carbon Dioxide 28 mmol/L (22-30); Chloride 106 mmol/L (98-107); Estimated Creatinine Clearance 86 ml/min; Glucose 112 mg/dl (70-99); Potassium 4.2 mmol/L (3.5-5.1); Sodium 140 mmol/L (135-145); eGFR > 60.00
[2024-05-25 08:41] LABS: % Basophils 0.5 % (0-2); % Immature Granulocytes 0.9 % (0-0.5); % Lymphocytes 21.9 % (20.5-51.1); % Monocytes 8.4 % (1.7-9.3); % Neutrophils 64.3 % (42.2-75.2); Absolute Eosinophils 0.3 10^3/uL (0-0.7); Absolute Immature Granulocytes 0.1 10^3/uL (0-0.05); Absolute Lymphocytes 1.4 10^3/uL (1.2-3.4); Absolute Monocytes 0.5 10^3/uL (0.1-0.6); Absolute Neutrophils 4.1 10^3/uL (1.4-6.5); Hematocrit 34.6 % (39.0-52.0); Hemoglobin 11.9 g/dL (13.0-18.0); Mean Corp Hgb Conc. 34.4 g/dL (33.0-37.0); Mean Corpuscular Hgb 29.9 pg (27.0-31.0); Mean Corpuscular Volume 86.9 fL (80.0-94.0); Mean Platelet Volume 8.5 fL (7.4-10.4); Nucleated Red Blood Cells % 0 % (-); Platelet Count 350 10^3/uL (130-400); Red Blood Cell Count 3.98 10^6/uL (4.70-6.10); Red Cell Dist. Width 12.2 % (11.5-14.5); White Blood Cell Count 6.4 10^3/uL (4.8-10.8)
[2024-05-25] MEDS: ZESTRIL 10 MG PO (08:57)
[2024-05-25] MEDS: VISBIOME 1 CAP PO (08:57)
[2024-05-25] MEDS: THERAGRAN 1 TABLET PO (08:58)
[2024-05-25] MEDS: CRESTOR 10 MG PO (08:58)
[2024-05-25] MEDS: MIRALAX 17 GRAMS PO (09:21)
[2024-05-25] MEDS: COLACE 100 MG PO ×2 (09:26→20:52)
--- NOTE | 2024-05-25 09:56 | W.PN.UPDATE ---
Update Note
Progress Note Update
I saw and evaluated the patient. I reviewed the resident�s note and agree with findings and plan as documented in the resident�s note with the following additions and corrections. Case discussed with resident.
S: afebrile, no overnight events
O:
drain output: >400 ccs yesterday and already >400 ccs tododay
VSS
Gen: No acute distress
GI:
:
Labs:
Body Fluid culture x2 few pseudomonas - note both of these are from the anterior pelvic collection
- both with Pseudmonas similar to the urine culture
- no yeast on gram stain or cultures
Fluid Cult/not urine Preliminary 05/25/24-915
Few Pseudomonas aeruginosa
Organism 1 Pseudomonas aeruginosa
1. Pseudomonas aeruginosa
M.I.C. RX
--------- ---
Cefepime <=2 S
Ceftazidime <=1 S
Ciprofloxacin <=0.25 S
Levofloxacin <=0.5 S
Meropenem <=1 S
Piperacillin/Tazobactam <=16 S
Tobramycin <=4 S
A&P:
Intraabdominal Abscess
Recent robotic prostatectomy 05/10
R epididymoorchitis
Status post CT-guided drainage of pelvic fluid collection 05/23
- Not stable for dc
- Advise against removal of drain until fluid output is consistently < 20 ccs per day x3 days; output today thus far is 225 ccs
- plan to reimage the cul de sac pelvic collection Wednesday to reassess if there is an approachable route for drainage. Size is somewhat concerning. IR has previously commented that if no improvement a transgluteal approach may be feasible. Detailed
discussion with patient 05/24, understands plan going forward
- Epididymoorchitis likely from adjacent spread of infection and dependent pooling of intraabdominal fluid collection
- UA with bacteria and yeast
- urine culture with >100K Pseudomonas
- body fluid - Pseudomonas
- Anaerobic culture pending
- qtc recently 414
- continue zosyn 4.5 gm iv q6 hrs day 6
- stop fluconazole - yeast have not been IDd in the cultures
- follow clinically
--- NOTE | 2024-05-25 11:08 | CM ---
Patient seen at bedside. Plan for referral to [facility] for follow up when patient is medically appropriate. patient for further assessment with IR per physician. CM will continue to follow for discharge planning needs.
Plan; home with [facility] to follow pending medical treatment plan
--- NOTE | 2024-05-25 12:51 | PTOTSP ---
The patient is independent with ambulation and elevations, offering no concerns regarding mobility upon return home. Patient agreeable to walking in the hallway while here to maintain/increase activity level. No further PT needs at this time, will
sign off.
[2024-05-25 15:20] VITALS: BP 172/84
--- NOTE | 2024-05-25 16:45 | PTCARENOTE ---
Patient c/o urge to urinate without any output; patient bladder scanned for 182 ml. Bladder scan obtained earlier in shift for 146 ml, patient voided 50 ml with PVR of 106 ml on bladder scan. Patient states feeling pressure in bladder, continuously
feeling urge to urinate but having difficulty doing so. PRN motrin given for abd pain and bladder pressure - see DEC. Urology made aware of patient complaints and output from GOLDEN drain, scheduled flomax ordered, urology to come to bedside to see
patient.
[2024-05-25 17:39] LABS: Body Fluid Creatinine 75.6 mg/dl
[2024-05-25] MEDS: LOVENOX 40 MG SC (17:48)
[2024-05-25] MEDS: FLOMAX 0.4 MG PO (17:50)
--- NOTE | 2024-05-25 18:41 | W.PN.URO.CBU ---
Today's Communication / Plan
-
Catheter replaced
Trend outputs
Assessment / Plan
-
58M post op robotic radical prostatectomy 05/10/24
Admitted with pseudomonas UTI and infected perivesical collections
s/p IR drainage of anterior collection
Timing of symptoms beginning immediately after catheter removal, location of collection surrounding urethrovesical anastomosis, and elevated fluid creatinine are consistent with urine leak from the urethrovesical anastomosis
- Cardona catheter replaced with additional drainage holes over the location of anastomosis which will hopefully help with urine diversion through the cardona only
- Trend output from cardona and GOLDEN
- Consider repeat imaging to assess collection drainage and catheter position
- Consider GOLDEN bulb transition to gravity drainage bag to avoid preferential drainage across defect
Discussed with Dr. Cuello
Diagnosis
-
Date of Service: May 25, 2024
-
Patient Diagnosis:
Urethrovesical anastomosis leak
Pseudomonal infection: lower genitourinary tract
Pre-and retrovesical fluid collections -- former drained percutaneously yesterday by IRad -- fluid appearance and gram stain do not indicate that this fluid is infected
Subjective
-
Called from patient's nurse due to lack of urine output and bladder spasms throughout the day
Patient assessed at bedside and GOLDEN bulb full of thin blood tinged fluid
80cc on bladder scan - less than prior without void
Minimal voided urine output today with bladder spasms and >1L from bulb suction drain
Scrotum with less pain
Fluctuating bladder volumes on bladder scan
Objective
-
Vital Signs
Temp Pulse Resp BP Pulse Ox
98.2 F 76 16 172/84 96
05/25/24 15:20 05/25/24 15:20 05/25/24 15:20 05/25/24 15:20 05/25/24 15:20
Intake and Output
05/24/24 05/25/24 05/26/24
06:59 06:59 06:59
Intake Total 2390 / 2390 1880 / 1880
Output Total 2625 / 2625 1335 / 1335
Balance -235 / -235 545 / 545
Intake:
Oral fluids 1860 / 1860 1680 / 1680
IV fluids (Total) 30 / 30
IV piggybacks 500 / 500 200 / 200
Amount instilled into Drain (
Total)
Lower Abdomen Placed in IR
Output:
Drain Output (Total) 375 / 375 810 / 810
Lower Abdomen Placed in IR 375 / 375 810 / 810
Urine, Cardona 2250 / 2250
Urine, Voided 525 / 525
Other:
Number of approximated MODERATE 3
amounts of urine
How many times incontinent 2
MODERATE amount urine
Laboratory Results
05/25/24 07:20
05/25/24 07:19
Physical Exam
-
General - well developed, well nourished, no acute distress
Chest - clear
Abdomen - soft, non-tender, no SP tenderness or fullness
Scrotal swelling, minimally tender
Skin - warm & dry with no rash
Neuro - AOx3, no motor deficits
[2024-05-25 18:50] VITALS: BP 146/81
[2024-05-25] MEDS: SENOKOT 8.6 MG PO (20:52)
[2024-05-25 23:09] VITALS: BP 143/76
[2024-05-26] MEDS: MOTRIN 400 MG PO ×4 (01:26→22:27)
[2024-05-26 06:00] VITALS: BMI 27.4
[2024-05-26] MEDS: ZOSYN 100 IV ×3 (06:12→18:04)
[2024-05-26] MEDS: OMNIPAQUE 50 ML PO (06:12)
[2024-05-26 06:53] LABS: % Basophils 0.8 % (0-2); % Eosinophils 5.2 % (0-6); % Immature Granulocytes 0.8 % (0-0.5); % Lymphocytes 24.5 % (20.5-51.1); % Monocytes 9.5 % (1.7-9.3); % Neutrophils 59.2 % (42.2-75.2); Absolute Basophils 0.1 10^3/uL (0-0.2); Absolute Eosinophils 0.3 10^3/uL (0-0.7); Absolute Immature Granulocytes 0.1 10^3/uL (0-0.05); Absolute Lymphocytes 1.5 10^3/uL (1.2-3.4); Absolute Monocytes 0.6 10^3/uL (0.1-0.6); Absolute Neutrophils 3.7 10^3/uL (1.4-6.5); Hemoglobin 11.4 g/dL (13.0-18.0); Mean Corp Hgb Conc. 34.5 g/dL (33.0-37.0); Mean Corpuscular Hgb 29.6 pg (27.0-31.0); Mean Corpuscular Volume 85.7 fL (80.0-94.0); Mean Platelet Volume 8.9 fL (7.4-10.4); Nucleated Red Blood Cells % 0 % (-); Platelet Count 378 10^3/uL (130-400); Red Blood Cell Count 3.85 10^6/uL (4.70-6.10); Red Cell Dist. Width 11.9 % (11.5-14.5); White Blood Cell Count 6.2 10^3/uL (4.8-10.8)
[2024-05-26 07:11] LABS: Blood Urea Nitrogen 22 mg/dl (9-20); Calcium 8.7 mg/dl (8.4-10.2); Carbon Dioxide 28 mmol/L (22-30); Chloride 106 mmol/L (98-107); Estimated Creatinine Clearance 95 ml/min; Glucose 110 mg/dl (70-99); Potassium 4.2 mmol/L (3.5-5.1); Sodium 139 mmol/L (135-145); eGFR > 60.00
[2024-05-26] MEDS: THERAGRAN 1 TABLET PO (07:39)
[2024-05-26] MEDS: CRESTOR 10 MG PO (07:39)
[2024-05-26] MEDS: VISBIOME 1 CAP PO (07:39)
[2024-05-26] MEDS: FLOMAX 0.4 MG PO (07:39)
[2024-05-26] MEDS: ZESTRIL 10 MG PO (07:40)
[2024-05-26] MEDS: COLACE 100 MG PO ×2 (07:40→22:27)
[2024-05-26] MEDS: MIRALAX 17 GRAMS PO (07:46)
[2024-05-26 07:53] VITALS: BP 150/85
--- NOTE | 2024-05-26 08:33 | W.PN.ID1 ---
Addendum entered and electronically signed by Dontrell Mello DO 05/26/24 14:43:
I saw and evaluated the patient. I reviewed the resident�s note and agree with findings and plan as documented in the resident�s note.
Patient overall feels well. Continues with Quesada catheter, along with drain at this point.
Discussed with Hospitalist service.
OK to transition to cipro 500 mg PO bid x 14 days.
Original Note:
Date of Service
Date of Service: May 26, 2024
Today's Communication
Continue Abx at this time, follow clinically
Assessment / Plan
Infected Urinoma
Recent robotic prostatectomy 05/10
R epididymoorchitis
Status post CT-guided drainage of pelvic fluid collection 05/23.
- Copious GOLDEN drainage. 860ml in last 24 hrs. Advise against removal of drain until fluid output is consistently < 20 ccs per day x3 days
- CT abd/pel 05/26: Cystic prevesical fluid collection significantly decreased in size when compared to prior currently measuring 4.5 x 11 x 4 cm with edema of prostatectomy surgical bed. Defer to urology and IR for for further drainage.
- Epididimoorchitis likely from leakage of urine from anastomosis site, and dependent pooling of intraabdominal fluid collection, Elevation helps.
- Quesada replaced
- UA with bacteria and yeast
- urine culture with >100K Pseudomonas
- body fluid cx (from prevesical fluid collection) - Pseudomonas
- Anerobic culture pending
- qtc recently 414
- continue zosyn 4.5 gm iv q6 hrs day 7, can convert to PO therapy when stable. Consider Levofloxacin
- continue fluconazole day 4
- follow clinically
Chief Complaint
-: Fever and Other (Scrotal pain, urinary frequency/urgency)
Subjective / Review of Systems
Some improvement in pain, and marked improvement in scrotal swelling per pt
Review of Systems: No Fever, No Chills and Other (scrotal swelling)
Vital Signs / Physical Exam
Vital Signs
Vital Signs
Temp Pulse Resp BP Pulse Ox
97.5 F 68 16 150/85 99
05/26/24 07:53 05/26/24 07:53 05/26/24 07:53 05/26/24 07:53 05/26/24 07:53
Physical Exam
Constitutional: No Acute Distress and Comfortable
Cardiovascular: Regular Rate and S1/S2; Negative Murmur, Rub or Peripheral Edema
Pulmonary: Clear and Non Labored; Negative Wheezes, Rales or Rhonchi
Gastrointestinal: Soft, Non Tender, Distended, Normal Bowel Sounds and Other (GOLDEN drain with serosanguinous fluid, catheter in LLQ, insertion site nonerythematous, intact)
Genito-Urinary: Quesada, Clear Urine and Other (R scrotal swelling, no erythema, mildly tender)
Skin: Warm, Dry and Other (5 small healing laparoscopic abdominal incisions intact, steri strips in place.)
Neurological: Awake and Alert
Psychological: Calm
Lines: PIV
Objective Data
Lab Data
Lab Results
05/26/24 06:02
05/26/24 06:02
PT 15.1 Sec (11.4-14.6) H 05/23/24 08:37
INR 1.21 05/23/24 08:37
Estimated Creat Clear 95 ml/min 05/26/24 06:02
Lactic Acid 0.9 mmol/L (0.7-2.0) 05/21/24 00:13
Total Bilirubin 1.0 mg/dl (0.2-1.3) 05/20/24 12:27
AST 23 U/L (17-59) 05/20/24 12:27
ALT 19 U/L (0-50) 05/20/24 12:27
Alkaline Phosphatase 52 U/L (38-126) 05/20/24 12:27
Most recent labs reviewed.
Micro Results:
05/20/24 12:27 Blood Culture - Final
Blood/Venous No Growth - Final Report
05/20/24 12:27 Blood Culture - Final
Blood/Venous No Growth - Final Report
05/23/24 16:47 Wound Culture - Preliminary
Abdomen Pseudomonas aeruginosa
Gram Stain - Preliminary
05/23/24 16:06 Body Fluid Culture - Preliminary
Fluid Pseudomonas aeruginosa
Gram Stain - Preliminary
05/23/24 12:37 Anaerobic Culture - Preliminary
Abscess Culture pending. Anaerobic cultures are examined after 3
days incubation. Additional information to follow.
05/23/24 16:47 Anaerobic Culture - Preliminary
Abdomen Culture pending. Anaerobic cultures are examined after 3
days incubation. Additional information to follow.
05/20/24 12:35 Urine Culture - Final
Urine Pseudomonas aeruginosa
--- NOTE | 2024-05-26 12:32 | W.PN.URO.CBU ---
Today's Communication / Plan
-
plan:
1. abx per ID
2. as pelvic fluid is infected urine, not a true abscess, and anterior and posterior collections are anatomically contiguous, I would NOT support placement of a 2nd percutaneous drain
3. Anticipate discharge with both Quesada and percutaneous drain in place
4. Cystogram to re-assess anastamotic healing in ~ 10 days
5. Removal of Quesada when urine leak is confirmed to have healed.
6. Removal of drain 24-48 hours later.
25 minute d/w patient at bedside
Assessment / Plan
-
58M post op robotic radical prostatectomy 05/10/24
Pseudomonal CAUTI --> extended to epididymis and impaired vesico-urethral anastomotic healing
With removal of Quesada post-op, anastomotic urine leak lead to accumulation of fluid cresencio-vesically, now s/p IR drainage of anterior collection
Removal of Quesada led to increased urine leakage, exiting via percutaneous drain.
Placement of Quesada with additional sub-balloon fenestration last evening has dramatically reduced urine exiting via percutaneous drain.
Diagnosis
-
Date of Service: May 26, 2024
-
Patient Diagnosis:
Urethrovesical anastomosis leak --> pelvic urinoma, infected; drained percutaneously yesterday by IRad
Pseudomonal infection: lower genitourinary tract
Subjective
-
feeling progressively better
Objective
-
Vital Signs
Temp Pulse Resp BP Pulse Ox
97.5 F 68 16 150/85 99
05/26/24 07:53 05/26/24 07:53 05/26/24 07:53 05/26/24 07:53 05/26/24 09:54
Intake and Output
05/25/24 05/26/24 05/27/24
06:59 06:59 06:59
Intake Total 1880 / 1880 445 / 445
Output Total 1335 / 1335 1935 / 1935
Balance 545 / 545 -1490 / -1490
Intake:
Oral fluids 1680 / 1680 240 / 240
IV piggybacks 200 / 200 200 / 200
Amount instilled into Drain (
Total)
Lower Abdomen Placed in IR
Output:
Drain Output (Total) 810 / 810 860 / 860
Lower Abdomen Placed in IR 810 / 810 860 / 860
Urine, Quesada 925 / 925
Urine, Voided 525 / 525 150 / 150
Other:
Number of approximated MODERATE 3
amounts of urine
How many times incontinent 2
MODERATE amount urine
Laboratory Results
05/26/24 06:02
05/26/24 06:02
CT: much reduced pelvic urinoma
Physical Exam
-
General - well developed, well nourished, no acute distress
Abdomen - soft, non-tender, positive bowel sounds, no distention; GOLDEN: thin, slightly sanguinous fluid
Genitalia - Quesada draining lashae urine
Scrotum: less induration and tenderness
Neuro - AOx3, no motor deficits
Extremities - no clubbing, no cyanosis, no edema
Incisions - clean, dry
--- NOTE | 2024-05-26 14:43 | CM ---
Addendum entered by Sonia Velazquez 05/26/24 15:56:
Patient for possible discharge tomorrow. Updated clinicals sent to [facility] and spoke with Mercedez from [facility] regarding resumption of care.
Original Note:
Patient seen at bedside with physicians. Patient now with cardona cath. Patient for continued medical treatment plan. Patient plan is to return home with VN supports from [facility]. Patient was known to [facility] prior to admission. CM will continue to
follow for discharge planning needs.
Plan; home with [facility]
--- NOTE | 2024-05-26 15:22 | W.PN.HOSP.TC ---
Addendum entered and electronically signed by Farideh Phillips MD 05/26/24 15:55:
I saw and evaluated the patient independently. I reviewed the resident�s note and agree with findings and plan as documented by Dr. Theodore.
GENERAL: well developed, well nourished, male in no apparent distress
HEENT: NC/AT
HEART: regular rate and rhythm, +S1, +S2
LUNGS : clear to auscultation bilaterally
ABDOM: soft, nontender, nondistended, + bowel sounds
EXT: no cyanosis, clubbing, or edema
NEUROLOGIC: grossly intact
: cardona removed
pseudomonas aeruginosa UTI with pseudomonas pelvic abscess (Urethrovesical anastomosis leak pelvic urinoma) (not related to urinary catheter--specimen collected prior to catheter being placed), blood culture no growth in 48 hours-- cont Zosyn,
change to cipro for 14 days at d/c per ID - leukocytosis down---s/p IR drainage, repeat CT scan with improvement in fluid collection cultures with pseudomonas--apprec ID/urology--s/p drainage by IR (cultures ordered)--Pain medication as needed
Colonic ileus--Colace and MiraLAX---Avoid opioid pain med as much as possible--advance diet--resolved
Essential hypertension--No changes prior to admission--continue lisinopril--Blood pressure is monitored and controlled
Hypercholesterolemia--Continue rosuvastatin
DVT prophylaxis Lovenox
CODE STATUS: Full code
anticipate d/c tomorrow with VN
Original Note:
Today's Communication/Plan
-
Abdomen/pelvis CT scan
Monitor Catheter output
Monitor drain output
Urology consult -continue antibiotics; cystogram to reassess anastomotic healing in ~ 10 days; removal of drain 24 to 48 hours later; removal of Cardona after healing of urine leak
Assessment / Plan
Assessment / Plan
58-year-old male s/p prostatectomy (05/10/24). Scrotal swelling better compared to yesterday. Drain output 860 (blood-tinged). Urology replaced cardona catheter yesterday.
Pelvic fluid collection
-Abd CT w IV and oral contrast - collection measuring 12.9 cm in the anterior extraperitoneal space and another collection measuring 5.2 cm in the pelvic cul-de-sac. likely represent seromas versus abscesses.
-Patient s/p collection drainage by IRad.
-ID consult - continue zosyn (Day 6). continue fluconazole (Day 5). Collection culture - pseudomonas, same pathogen as found in urine culture; anaerobic culture pending
-Fluid creatinine seen. Likely leakage from vesicourethral anastomosis
-Pain medication as needed
-ID consult - Check Cr in collection specimen for seroma vs urinoma, reassess collection by abd/pelvis CT scan tomorrow
-Urology consult - Cardona catheter replaced. Monitor Cardona outputs.
-Abdomen/pelvis CT scan - prevesical fluid collection decreased in size now measuring 5 cm
-Urology consult -continue antibiotics; cystogram to reassess anastomotic healing in ~ 10 days; removal of drain 24 to 48 hours later; removal of Cardona after healing of urine leak
Likely UTI
-U/C positive for pseudomonas aeruginosa, B/C no growth in 72 hours
-Zosyn started - Day 6 Zosyn
-Leukocytosis down trended. WBC 5.7 today
-ID consult - continue zosyn. continue fluconazole. Awaiting cultures. Fluid culture (preliminary): gram negative bacilli
-Patient had collection drained by IRad.
-Urine was clear this morning.
-Continue to monitor CBC, body temperature
Scotal pain
-scrotum swelling decreased
Colonic ileus
-Colace and MiraLAX-had a bowel movement at noon. Patient notes regular bowel movement today.
-Consider full liquid diet.
-Avoid opioid pain med as much as possible
Essential hypertension
-No changes prior to admission-continue lisinopril
-Blood pressure is monitored and controlled
Hypercholesterolemia
Continue rosuvastatin
DVT prophylaxis Lovenox
CODE STATUS: Full code
Anticipated Discharge: Within 24 hours
Subjective/Interval History
-
Date of Service: May 26, 2024
Objective Data
-
Labs:
Laboratory Results
05/26/24
06:02
WBC 6.2
Hgb 11.4 L
Hct 33.0 L
Plt Count 378
Sodium 139
Potassium 4.2
Chloride 106
Carbon Dioxide 28
BUN 22 H
Creatinine 1.0
Glucose 110 H
Calcium 8.7
Vital Signs:
Vital Signs
Temp Pulse Resp BP Pulse Ox
97.5 F 68 16 150/85 99
05/26/24 07:53 05/26/24 07:53 05/26/24 07:53 05/26/24 07:53 05/26/24 09:54
I&O
05/25/24 05/26/24 05/27/24
06:59 06:59 06:59
Intake Total 1880 / 1880 445 / 445
Output Total 1335 / 1335 1935 / 1935
Balance 545 / 545 -1490 / -1490
Review of Systems
-
History Source: Patient
All other systems: Reviewed and negative
Genitourinary: Reports Other (Scrotal swelling)
Physical Exam
-
General: Well Developed and No Apparent Distress
HEENT: Normocephalic and Moist Mucous Membranes
Respiratory: Clear to Auscultation
Cardiac: Regular Rhythm and S1/S2
GI: Normal Bowel Sounds and Distended
Genito-urinary: Other (Scrotal swelling improved. Decreased tenderness)
Musculoskeletal: No Edema
Skin: Warm and Dry
Neuro: Awake, Alert and Oriented
Psych: Calm
[2024-05-26 15:29] VITALS: BP 144/83
[2024-05-26] MEDS: LOVENOX 40 MG SC (18:03)
[2024-05-26] MEDS: SENOKOT 8.6 MG PO (22:27)
[2024-05-26 23:20] VITALS: BP 124/60
[2024-05-27] MEDS: ZOSYN 100 IV ×2 (00:18→05:54)
[2024-05-27 06:00] VITALS: BMI 27.4
[2024-05-27 07:51] VITALS: BP 136/81
[2024-05-27] MEDS: CRESTOR 10 MG PO (08:01)
[2024-05-27] MEDS: ZESTRIL 10 MG PO (08:01)
[2024-05-27] MEDS: FLOMAX 0.4 MG PO (08:01)
[2024-05-27] MEDS: VISBIOME 1 CAP PO (08:01)
[2024-05-27] MEDS: COLACE 100 MG PO (08:01)
[2024-05-27] MEDS: MIRALAX 17 GRAMS PO (08:01)
[2024-05-27] MEDS: THERAGRAN 1 TABLET PO (08:01)
[2024-05-27 08:50] LABS: Blood Urea Nitrogen 19 mg/dl (9-20); Calcium 8.7 mg/dl (8.4-10.2); Carbon Dioxide 28 mmol/L (22-30); Chloride 103 mmol/L (98-107); Estimated Creatinine Clearance 95 ml/min; Glucose 100 mg/dl (70-99); Potassium 4.4 mmol/L (3.5-5.1); Sodium 137 mmol/L (135-145); eGFR > 60.00
[2024-05-27 09:37] LABS: % Basophils 0.7 % (0-2); % Eosinophils 6.3 % (0-6); % Immature Granulocytes 1.9 % (0-0.5); % Lymphocytes 21.2 % (20.5-51.1); % Monocytes 8.9 % (1.7-9.3); Absolute Eosinophils 0.4 10^3/uL (0-0.7); Absolute Immature Granulocytes 0.1 10^3/uL (0-0.05); Absolute Lymphocytes 1.2 10^3/uL (1.2-3.4); Absolute Monocytes 0.5 10^3/uL (0.1-0.6); Absolute Neutrophils 3.6 10^3/uL (1.4-6.5); Hematocrit 33.7 % (39.0-52.0); Hemoglobin 11.5 g/dL (13.0-18.0); Mean Corp Hgb Conc. 34.1 g/dL (33.0-37.0); Mean Corpuscular Hgb 29.6 pg (27.0-31.0); Mean Corpuscular Volume 86.9 fL (80.0-94.0); Mean Platelet Volume 8.7 fL (7.4-10.4); Nucleated Red Blood Cells % 0 % (-); Platelet Count 399 10^3/uL (130-400); Red Blood Cell Count 3.88 10^6/uL (4.70-6.10); White Blood Cell Count 5.9 10^3/uL (4.8-10.8)
[2024-05-27] MEDS: CIPRO 500 MG PO ×2 (09:53→19:54)
--- NOTE | 2024-05-27 09:54 | W.PN.URO.CBU ---
Today's Communication / Plan
-
continue prex[sent care
Assessment / Plan
-
58M post op robotic radical prostatectomy 05/10/24
Pseudomonal CAUTI --> extended to epididymis and impaired vesico-urethral anastomotic healing
With removal of Quesada post-op, anastomotic urine leak lead to accumulation of fluid cresencio-vesically, now s/p IR drainage of anterior collection
Removal of Quesada led to increased urine leakage, exiting via percutaneous drain.
Placement of Quesada with additional sub-balloon fenestration last evening has dramatically reduced urine exiting via percutaneous drain.
Diagnosis
-
Date of Service: May 27, 2024
-
Patient Diagnosis:
Post Op Day:
Patient Diagnosis:
Urethrovesical anastomosis leak --> pelvic urinoma, infected; drained percutaneously yesterday by IRad
Pseudomonal infection: lower genitourinary tract
Subjective
-
much less drainage
Objective
-
Vital Signs
Temp Pulse Resp BP Pulse Ox
98.5 F 67 16 136/81 99
05/27/24 07:51 05/27/24 08:01 05/27/24 07:51 05/27/24 08:01 05/27/24 07:51
Intake and Output
05/26/24 05/27/24 05/28/24
06:59 06:59 06:59
Intake Total 445 / 445 1890 / 1890
Output Total 1935 / 1935 1845 / 1845
Balance -1490 / -1490 45 / 45
Intake:
Oral fluids 240 / 240 1680 / 1680
IV piggybacks 200 / 200 200 / 200
Amount instilled into Drain (
Total)
Lower Abdomen Placed in IR
Output:
Drain Output (Total) 860 / 860 245 / 245
Lower Abdomen Placed in IR 860 / 860 245 / 245
Urine, Quesada 925 / 925 1600 / 1600
Urine, Voided 150 / 150
Laboratory Results
05/27/24 07:27
05/27/24 07:27
Review of Systems
-
: No Symptoms
Physical Exam
-
General - well developed, well nourished, no acute distress
Chest - clear bilaterally
Abdomen - soft, non-tender, positive bowel sounds, no CVAT, no incisional pain or distention
Genitalia - normal
Rectal - normal
Skin - warm & dry with no rash
Neuro - AOx3, no motor deficits
Extremities - no clubbing, no cyanosis, no edema
Incision - clean, dry
Dressing - clean, dry, intact
Care Review
Data Reviewed
Discussed with: Infectious Disease and Nursing
--- NOTE | 2024-05-27 10:51 | W.PN.ID1 ---
Date of Service
Date of Service: May 27, 2024
Today's Communication
Continue antibiotics. Transition to oral ciprofloxacin.
Assessment / Plan
Infected Urinoma
Recent robotic prostatectomy 05/10/24
(R) epididymoorchitis
Status post CT-guided drainage of pelvic fluid collection 05/23.
- urine culture with >100K Pseudomonas
- body fluid cx (from prevesical fluid collection) - Pseudomonas
- Anerobic culture - NG
Transition to oral cipro 500 mg BID for an additional 14 day
- follow clinically
����������������������������������������������������������
Chief Complaint
-: Fever and Other (Scrotal pain, urinary frequency/urgency)
Subjective / Review of Systems
Review of Systems: No Fever and No Chills
Vital Signs / Physical Exam
Vital Signs
Vital Signs
Temp Pulse Resp BP Pulse Ox
98.5 F 67 16 136/81 99
05/27/24 07:51 05/27/24 08:01 05/27/24 07:51 05/27/24 08:01 05/27/24 07:51
Physical Exam
Constitutional: No Acute Distress and Comfortable
Pulmonary: Clear and Non Labored
Gastrointestinal: Soft, Non Tender, Distended, Normal Bowel Sounds and Other (GOLDEN drain with serosanguinous fluid, catheter in LLQ, insertion site nonerythematous, intact)
Genito-Urinary: Quesada and Clear Urine
Skin: Warm and Dry
Neurological: Awake and Alert
Psychological: Calm
Lines: PIV
Objective Data
Lab Data
Lab Results
05/27/24 07:27
05/27/24 07:27
PT 15.1 Sec (11.4-14.6) H 05/23/24 08:37
INR 1.21 05/23/24 08:37
Estimated Creat Clear 95 ml/min 05/27/24 07:27
Lactic Acid 0.9 mmol/L (0.7-2.0) 05/21/24 00:13
Total Bilirubin 1.0 mg/dl (0.2-1.3) 05/20/24 12:27
AST 23 U/L (17-59) 05/20/24 12:27
ALT 19 U/L (0-50) 05/20/24 12:27
Alkaline Phosphatase 52 U/L (38-126) 05/20/24 12:27
Most recent labs reviewed.
Micro Results:
05/23/24 12:37 Anaerobic Culture - Preliminary
Abscess NO ANAEROBES ISOLATED
05/23/24 16:47 Anaerobic Culture - Preliminary
Abdomen NO ANAEROBES ISOLATED
05/20/24 12:27 Blood Culture - Final
Blood/Venous No Growth - Final Report
05/20/24 12:27 Blood Culture - Final
Blood/Venous No Growth - Final Report
05/23/24 16:47 Wound Culture - Preliminary
Abdomen Pseudomonas aeruginosa
Gram Stain - Preliminary
05/23/24 16:06 Body Fluid Culture - Preliminary
Fluid Pseudomonas aeruginosa
Gram Stain - Preliminary
05/20/24 12:35 Urine Culture - Final
Urine Pseudomonas aeruginosa
SPEC #: [id number] CECILIO: 05/23/24-1606
SOURCE: FLUID
ORDERED: Fluid Culture
Fluid Cult/not urine Preliminary
Few Pseudomonas aeruginosa
Organism 1 Pseudomonas aeruginosa
1. Pseudomonas aeruginosa
M.I.C. RX
--------- ---
Cefepime <=2 S
Ceftazidime <=1 S
Ciprofloxacin <=0.25 S
Levofloxacin <=0.5 S
Meropenem <=1 S
Piperacillin/Tazobactam <=16 S
Tobramycin <=4 S
Care Review
Plan reviewed with: Physician (Hospitalist; Urology)
--- NOTE | 2024-05-27 11:57 | W.PN.HOSP.TC ---
Today's Communication/Plan
-
care as per urology
Assessment / Plan
Assessment / Plan
58-year-old male s/p prostatectomy (05/10/24). Scrotal swelling better compared to yesterday. Drain output 860 (blood-tinged). Urology replaced cardona catheter yesterday.
pseudomonas aeruginosa UTI with pseudomonas pelvic abscess (Urethrovesical anastomosis leak and pelvic urinoma) (not related to urinary catheter--specimen collected prior to catheter being placed), blood culture no growth in 48 hours-- now on cipro
for 14 days at d/c per ID - leukocytosis down---s/p IR drainage, repeat CT scan with improvement in fluid collection cultures with pseudomonas--apprec ID/urology--s/p drainage by IR (cultures ordered)--Pain medication as needed--cardona and drains to
stay at d/c
Colonic ileus--Colace and MiraLAX---Avoid opioid pain med as much as possible--advance diet--resolved
Essential hypertension--No changes prior to admission--continue lisinopril--Blood pressure is monitored and controlled
Hypercholesterolemia--Continue rosuvastatin
DVT prophylaxis Lovenox
CODE STATUS: Full code
Anticipated Discharge: > 48 hours
Subjective/Interval History
-
Date of Service: May 27, 2024
pt without c/o
Objective Data
-
Labs:
Laboratory Results
05/27/24
07:27
WBC 5.9
Hgb 11.5 L
Hct 33.7 L
Plt Count 399
Sodium 137
Potassium 4.4
Chloride 103
Carbon Dioxide 28
BUN 19
Creatinine 1.0
Glucose 100 H
Calcium 8.7
Vital Signs:
max temp for 24 hours
05/26/24
15:29
Temp 98.3 F
Vital Signs
Temp Pulse Resp BP Pulse Ox
98.5 F 67 16 136/81 99
05/27/24 07:51 05/27/24 08:01 05/27/24 07:51 05/27/24 08:01 05/27/24 07:51
I&O
05/26/24 05/27/24 05/28/24
06:59 06:59 06:59
Intake Total 445 / 445 1889 / 1889
Output Total 1934 / 1934 1844 / 1844
Balance -1490 / -1490 45 / 45
Review of Systems
-
All other systems: Reviewed and negative
Physical Exam
-
General: Well Developed, Well Nourished and No Apparent Distress
HEENT: Normocephalic and Atraumatic
Respiratory: Clear to Auscultation; Negative Wheezes, Rales or Rhonchi
Cardiac: Regular Rhythm and S1/S2; Negative Murmur
GI: Soft, Nontender, Nondistended and Normal Bowel Sounds
Genito-urinary: Cardona and Other (GOLDEN drain)
Musculoskeletal: No Clubbing, No Cyanosis and No Edema
Skin: Warm
Neuro: Awake
[2024-05-27 15:54] VITALS: BP 127/72
[2024-05-27] MEDS: LOVENOX 40 MG SC (17:13)
[2024-05-27] MEDS: MOTRIN 400 MG PO (17:13)
[2024-05-27] MEDS: SENOKOT PO (19:54)
[2024-05-27] MEDS: COLACE PO (19:54)
[2024-05-27 23:18] VITALS: BP 127/71
[2024-05-27] MEDS: MELATONIN 5 MG PO (23:50)
[2024-05-28] MEDS: MOTRIN 400 MG PO (05:22)
[2024-05-28 06:00] VITALS: BMI 27.2
[2024-05-28 07:54] VITALS: BP 130/82
[2024-05-28] MEDS: FLOMAX 0.4 MG PO (07:56)
[2024-05-28] MEDS: ZESTRIL 10 MG PO (07:56)
[2024-05-28] MEDS: CIPRO 500 MG PO ×2 (07:56→20:38)
[2024-05-28] MEDS: VISBIOME 1 CAP PO (07:56)
[2024-05-28] MEDS: CRESTOR 10 MG PO (07:56)
[2024-05-28] MEDS: THERAGRAN 1 TABLET PO (07:56)
[2024-05-28] MEDS: MIRALAX PO (07:59)
[2024-05-28] MEDS: COLACE PO ×2 (07:59→20:39)
--- NOTE | 2024-05-28 09:02 | W.PN.HOSP.TC ---
Today's Communication/Plan
-
plan for d/c Wednesday per urology
Assessment / Plan
Assessment / Plan
58-year-old male s/p prostatectomy (05/10/24). Scrotal swelling better compared to yesterday. Drain output 860 (blood-tinged). Urology replaced cardona catheter yesterday.
pseudomonas aeruginosa UTI with pseudomonas pelvic abscess (Urethrovesical anastomosis leak and pelvic urinoma) (not related to urinary catheter--specimen collected prior to catheter being placed), blood culture no growth in 48 hours-- now on cipro
for 14 days at d/c per ID - leukocytosis down---s/p IR drainage, repeat CT scan with improvement in fluid collection cultures with pseudomonas--apprec ID/urology--s/p drainage by IR (cultures ordered)--Pain medication as needed--cardona and drains to
stay at d/c
diarrhea--started cipro--follow
Colonic ileus--Colace and MiraLAX (might need to hold with diarrhea)---Avoid opioid pain med as much as possible--advance diet--resolved
Essential hypertension--No changes prior to admission--continue lisinopril--Blood pressure is monitored and controlled
Hypercholesterolemia--Continue rosuvastatin
DVT prophylaxis Lovenox
CODE STATUS: Full code
Anticipated Discharge: Within 24 hours
Subjective/Interval History
-
Date of Service: May 28, 2024
pt doing well--started with diarrhea
Objective Data
-
Vital Signs:
max temp for 24 hours
05/27/24
15:54
Temp 99.2 F
Vital Signs
Temp Pulse Resp BP Pulse Ox
98.6 F 75 20 130/82 95
05/28/24 07:54 05/28/24 07:56 05/28/24 07:54 05/28/24 07:56 05/28/24 07:54
I&O
05/27/24 05/28/24 05/29/24
06:59 06:59 06:59
Intake Total 1889 2880 / 2879
Output Total 1844 2578 / 2578
Balance 45 / 45 302 / 302
Review of Systems
-
All other systems: Reviewed and negative
Physical Exam
-
General: Well Developed, Well Nourished and No Apparent Distress
HEENT: Normocephalic and Atraumatic
Respiratory: Clear to Auscultation; Negative Wheezes or Rhonchi
Cardiac: Regular Rhythm and S1/S2; Negative Murmur
GI: Soft, Nontender and Nondistended; Negative Normal Bowel Sounds (hyperactive)
Musculoskeletal: No Clubbing, No Cyanosis and No Edema
Skin: Warm
Neuro: Awake
Psych: Calm
--- NOTE | 2024-05-28 10:40 | W.PN.ID1 ---
Date of Service
Date of Service: May 28, 2024
Today's Communication
Continue antibiotics.
Assessment / Plan
Infected Urinoma
Recent robotic prostatectomy 05/10/24
(R) epididymoorchitis
Status post CT-guided drainage of pelvic fluid collection 05/23.
- urine culture with >100K Pseudomonas
- body fluid cx (from prevesical fluid collection) - Pseudomonas
- Anerobic culture - NG
Recommendations:
Continue with oral cipro 500 mg BID for an additional 13 days with close clinical monitoring.
����������������������������������������������������������
Chief Complaint
-: Fever and Other (Scrotal pain, urinary frequency/urgency)
Subjective / Review of Systems
Patient seen and examined. Reports overall doing well. Decreasing fluid drained.
Review of Systems: No Fever and No Chills
Vital Signs / Physical Exam
Vital Signs
Vital Signs
Temp Pulse Resp BP Pulse Ox
98.6 F 75 20 130/82 95
05/28/24 07:54 05/28/24 07:56 05/28/24 07:54 05/28/24 07:56 05/28/24 07:54
Physical Exam
Constitutional: No Acute Distress, Comfortable and Non-toxic
Eyes: Sclera Anicteric
Pulmonary: Non Labored
Gastrointestinal: Non Distended
Genito-Urinary: Quesada and Clear Urine
Skin: Warm and Dry
Neurological: Awake and Alert
Psychological: Calm
Lines: PIV
Objective Data
Lab Data
Lab Results
05/27/24 07:27
05/27/24 07:27
PT 15.1 Sec (11.4-14.6) H 05/23/24 08:37
INR 1.21 05/23/24 08:37
Estimated Creat Clear 95 ml/min 05/27/24 07:27
Lactic Acid 0.9 mmol/L (0.7-2.0) 05/21/24 00:13
Total Bilirubin 1.0 mg/dl (0.2-1.3) 05/20/24 12:27
AST 23 U/L (17-59) 05/20/24 12:27
ALT 19 U/L (0-50) 05/20/24 12:27
Alkaline Phosphatase 52 U/L (38-126) 05/20/24 12:27
Most recent labs reviewed.
Micro Results:
05/23/24 12:37 Anaerobic Culture - Preliminary
Abscess NO ANAEROBES ISOLATED
05/23/24 16:47 Anaerobic Culture - Preliminary
Abdomen NO ANAEROBES ISOLATED
05/20/24 12:27 Blood Culture - Final
Blood/Venous No Growth - Final Report
05/20/24 12:27 Blood Culture - Final
Blood/Venous No Growth - Final Report
05/23/24 16:47 Wound Culture - Preliminary
Abdomen Pseudomonas aeruginosa
Gram Stain - Preliminary
05/23/24 16:06 Body Fluid Culture - Preliminary
Fluid Pseudomonas aeruginosa
Gram Stain - Preliminary
05/20/24 12:35 Urine Culture - Final
Urine Pseudomonas aeruginosa
SPEC #: [id number] CECILIO: 05/23/24-1606
SOURCE: FLUID
ORDERED: Fluid Culture
Fluid Cult/not urine Preliminary
Few Pseudomonas aeruginosa
Organism 1 Pseudomonas aeruginosa
1. Pseudomonas aeruginosa
M.I.C. RX
--------- ---
Cefepime <=2 S
Ceftazidime <=1 S
Ciprofloxacin <=0.25 S
Levofloxacin <=0.5 S
Meropenem <=1 S
Piperacillin/Tazobactam <=16 S
Tobramycin <=4 S
Care Review
Plan reviewed with: Physician (Hospitalist)
--- NOTE | 2024-05-28 12:35 | W.PN.URO.CBU ---
Today's Communication / Plan
-
continue present care probably home am with cardona and kirit
Assessment / Plan
-
58M post op robotic radical prostatectomy 05/10/24
Pseudomonal CAUTI --> extended to epididymis and impaired vesico-urethral anastomotic healing
With removal of Cardona post-op, anastomotic urine leak lead to accumulation of fluid rcesencio-vesically, now s/p IR drainage of anterior collection
Removal of Cardona led to increased urine leakage, exiting via percutaneous drain.
Placement of Cardona with additional sub-balloon fenestration last evening has dramatically reduced urine exiting via percutaneous drain.
Diagnosis
-
Date of Service: May 28, 2024
-
Patient Diagnosis:
Post Op Day:
Patient Diagnosis:
Post Op Day:
Patient Diagnosis:
Urethrovesical anastomosis leak --> pelvic urinoma, infected; drained percutaneously yesterday by IRad
Pseudomonal infection: lower genitourinary tract
Subjective
-
feels baseline no pain fevr etc
Objective
-
Vital Signs
Temp Pulse Resp BP Pulse Ox
98.6 F 75 20 130/82 95
05/28/24 07:54 05/28/24 07:56 05/28/24 07:54 05/28/24 07:56 05/28/24 07:54
Intake and Output
05/27/24 05/28/24 05/29/24
06:59 06:59 06:59
Intake Total 1890 / 1890 2880 / 2880
Output Total 1845 / 1845 2578 / 2578
Balance 45 / 45 302 / 302
Intake:
Oral fluids 1680 / 1680 2880 / 2880
IV piggybacks 200 / 200
Amount instilled into Drain (
Total)
Lower Abdomen Placed in IR
Output:
Drain Output (Total)
Lower Abdomen Placed in IR
Urine, Cardona 1600 / 1600 2500 / 2500
Laboratory Results
05/27/24 07:27
05/27/24 07:27
Review of Systems
-
: Difficulty Voiding
Physical Exam
-
General - well developed, well nourished, no acute distress
Chest - clear bilaterally
Abdomen - soft, non-tender, positive bowel sounds, no CVAT, no incisional pain or distention
Genitalia - normal
Rectal - normal
Skin - warm & dry with no rash
Neuro - AOx3, no motor deficits
Extremities - no clubbing, no cyanosis, no edema
Incision - clean, dry
Dressing - clean, dry, intact
Care Review
Data Reviewed
Discussed with: Hospitalist
[2024-05-28 15:20] VITALS: BP 127/70
[2024-05-28] MEDS: LOVENOX 40 MG SC (17:16)
[2024-05-28] MEDS: TYLENOL 650 MG PO (17:16)
[2024-05-28] MEDS: SENOKOT PO (20:39)
[2024-05-28 23:23] VITALS: BP 135/77
[2024-05-29] MEDS: MOTRIN 400 MG PO (03:52)
[2024-05-29 05:06] VITALS: BMI 27.1
[2024-05-29 06:09] LABS: Hematocrit 34.6 % (39.0-52.0); Hemoglobin 11.9 g/dL (13.0-18.0); Mean Corp Hgb Conc. 34.4 g/dL (33.0-37.0); Mean Corpuscular Hgb 30.4 pg (27.0-31.0); Mean Corpuscular Volume 88.3 fL (80.0-94.0); Mean Platelet Volume 8.6 fL (7.4-10.4); Platelet Count 420 10^3/uL (130-400); Red Blood Cell Count 3.92 10^6/uL (4.70-6.10); White Blood Cell Count 6.8 10^3/uL (4.8-10.8)
[2024-05-29 06:32] LABS: Blood Urea Nitrogen 17 mg/dl (9-20); Calcium 8.8 mg/dl (8.4-10.2); Carbon Dioxide 23 mmol/L (22-30); Chloride 104 mmol/L (98-107); Estimated Creatinine Clearance 95 ml/min; Glucose 102 mg/dl (70-99); Magnesium 2.3 mg/dl (1.6-2.3); Potassium 4.6 mmol/L (3.5-5.1); Sodium 136 mmol/L (135-145); eGFR > 60.00
[2024-05-29 07:15] VITALS: BP 129/77
--- NOTE | 2024-05-29 07:57 | W.PN.URO.CBU ---
Today's Communication / Plan
-
discharge today
Assessment / Plan
-
58M post op robotic radical prostatectomy 05/10/24
Pseudomonal CAUTI --> extended to epididymis and impaired vesico-urethral anastomotic healing
With removal of Quesada post-op, anastomotic urine leak lead to accumulation of fluid cresencio-vesically, now s/p IR drainage of anterior collection
Removal of Quesada led to increased urine leakage, exiting via percutaneous drain.
Placement of Quesada with additional sub-balloon fenestration last evening has dramatically reduced urine exiting via percutaneous drain.
Diagnosis
-
Date of Service: May 29, 2024
-
Patient Diagnosis:
Urethrovesical anastomosis leak --> pelvic urinoma, infected; drained percutaneously yesterday by IRad
Pseudomonal infection: lower genitourinary tract
Subjective
-
feeling fit for discharge
Objective
-
Vital Signs
Temp Pulse Resp BP Pulse Ox
98.9 F 83 16 135/77 97
05/28/24 23:23 05/28/24 23:23 05/28/24 23:23 05/28/24 23:23 05/28/24 23:23
Intake and Output
05/28/24 05/29/24 05/30/24
06:59 06:59 06:59
Intake Total 2880 / 2880 1345 / 1345
Output Total 2578 / 2578 1994
Balance 302 / 302 -650 / -650
Intake:
Oral fluids 2880 / 2880 1340 / 1340
Amount instilled into Drain (
Total)
Lower Abdomen Placed in IR
Output:
Drain Output (Total) 70
Lower Abdomen Placed in IR 78 / 78 70 / 70
Urine, Quesada 2500 / 2500 1924
Laboratory Results
05/29/24 04:50
05/29/24 04:50
Physical Exam
-
General - well developed, well nourished, no acute distress
Chest - clear bilaterally
Abdomen - soft, non-tender, positive bowel sounds, no distention; GOLDEN: thin fluid
Genitalia - Quesada: lashae urine; scrotum: soft, nontender
Skin - warm & dry with no rash
Neuro - AOx3, no motor deficits
Extremities - no clubbing, no cyanosis, no edema
Incisions - clean, dry
[2024-05-29] MEDS: CRESTOR 10 MG PO (08:35)
[2024-05-29] MEDS: FLOMAX 0.4 MG PO (08:35)
[2024-05-29] MEDS: VISBIOME 1 CAP PO (08:35)
[2024-05-29] MEDS: ZESTRIL 10 MG PO (08:35)
[2024-05-29] MEDS: CIPRO 500 MG PO (08:36)
[2024-05-29] MEDS: THERAGRAN 1 TABLET PO (08:37)
[2024-05-29] MEDS: COLACE 100 MG PO (08:38)
[2024-05-29] MEDS: MIRALAX 17 GRAMS PO (08:39)
--- NOTE | 2024-05-29 09:56 | W.PN.ID1 ---
Addendum entered and electronically signed by Anabell Roberts MD 05/29/24 16:35:
I saw and evaluated the patient. I reviewed the resident�s note and agree with findings and plan as documented in the resident�s note with the following additions/corrections:
S:
Remains afebrile over the weekend
O:
Labs reviewed as below.
Note new thrombocytosis to 420
A&P
Infected Urinoma
Recent robotic prostatectomy 05/10/24
(R) epididymoorchitis
Status post CT-guided drainage of pelvic fluid collection 05/23.
- urine culture with >100K Pseudomonas
- body fluid cx (from prevesical fluid collection) - Pseudomonas
- Anaerobic culture - NG
- further drain and cardona management per surgery
- EKG today to reassess QTc - remains acceptable
Continue with oral cipro, I have increased dose to 750 mg BID for an additional 12 days
AW
Original Note:
Date of Service
Date of Service: May 29, 2024
Today's Communication
Continue Cipro 750mg
Assessment / Plan
Infected Urinoma, (R) epididymoorchitis secondary to urethrovesical anastomosis leak
Recent robotic prostatectomy 05/10/[address]-guided drainage of pelvic fluid collection 05/23.
- urine culture with >100K Pseudomonas
- body fluid cx (from prevesical fluid collection) - Pseudomonas
- Body fluid creatinine 75.6
- Anerobic culture - NG
-GOLDEN drain output 70 in past 24 hours.
Recommendations:
Continue with oral cipro 750 mg BID for an additional 12 days with close clinical monitoring.
����������������������������������������������������������
Chief Complaint
-: Fever and Other (Scrotal pain, urinary frequency/urgency)
Subjective / Review of Systems
No fever overnight
Pt feels much improved and looks forward to discharge
Review of Systems: No Fever, No Abdominal Pain, No Diarrhea and Other (no scrotal pain)
Vital Signs / Physical Exam
Vital Signs
Vital Signs
Temp Pulse Resp BP Pulse Ox
97.4 F 76 18 129/77 95
05/29/24 07:15 05/29/24 08:35 05/29/24 07:15 05/29/24 08:35 05/29/24 07:15
Physical Exam
Constitutional: No Acute Distress and Comfortable
Cardiovascular: Regular Rate and S1/S2; Negative Murmur or Rub
Pulmonary: Clear and Non Labored; Negative Wheezes, Rales or Rhonchi
Gastrointestinal: Soft, Non Tender, Distended (mildly), Normal Bowel Sounds, No Rebound, No Guarding and Other (GOLDEN drain with serosanguinous fluid, catheter in LLQ, insertion site non-erythematous, nontender. scant serosanguinous fluid in bulb)
Genito-Urinary: Cardona, Clear Urine and Other (R scrotal swelling, nontender, non erythematous, )
Skin: Warm, Dry and Other (5 small healing laparoscopic abdominal incisions intact)
Neurological: Awake, Alert and Other (answers questions appropriately)
Psychological: Calm
Objective Data
Lab Data
Lab Results
05/29/24 04:50
05/29/24 04:50
PT 15.1 Sec (11.4-14.6) H 05/23/24 08:37
INR 1.21 05/23/24 08:37
Estimated Creat Clear 95 ml/min 05/29/24 04:50
Lactic Acid 0.9 mmol/L (0.7-2.0) 05/21/24 00:13
Total Bilirubin 1.0 mg/dl (0.2-1.3) 05/20/24 12:27
AST 23 U/L (17-59) 05/20/24 12:27
ALT 19 U/L (0-50) 05/20/24 12:27
Alkaline Phosphatase 52 U/L (38-126) 05/20/24 12:27
Most recent labs reviewed.
Micro Results:
05/23/24 16:06 Body Fluid Culture - Final
Fluid Pseudomonas aeruginosa
Gram Stain - Final
05/23/24 16:47 Wound Culture - Final
Abdomen Pseudomonas aeruginosa
Gram Stain - Final
05/23/24 12:37 Anaerobic Culture - Final
Abscess NO ANAEROBES ISOLATED
05/23/24 16:47 Anaerobic Culture - Final
Abdomen NO ANAEROBES ISOLATED
05/20/24 12:27 Blood Culture - Final
Blood/Venous No Growth - Final Report
05/20/24 12:27 Blood Culture - Final
Blood/Venous No Growth - Final Report
05/20/24 12:35 Urine Culture - Final
Urine Pseudomonas aeruginosa
SPEC #: [id number] CECILIO: 05/23/24-1606
SOURCE: FLUID
ORDERED: Fluid Culture
Fluid Cult/not urine Preliminary
Few Pseudomonas aeruginosa
Organism 1 Pseudomonas aeruginosa
1. Pseudomonas aeruginosa
M.I.C. RX
--------- ---
Cefepime <=2 S
Ceftazidime <=1 S
Ciprofloxacin <=0.25 S
Levofloxacin <=0.5 S
Meropenem <=1 S
Piperacillin/Tazobactam <=16 S
Tobramycin <=4 S
--- NOTE | 2024-05-29 10:08 | W.DCSUMMARY ---
Documented by User: Paula Theodore MD, Resident 05/29/24 17:31
Discharge Summary
Discharge Data
Date of Admission: 05/20/24
Date of Discharge: 05/29/24
Total time spent discharging patient (in min): 50
-
Pending Results: No
Hospital Course
Primary diagnosis:
Infected pelvic urinoma
Catheter associated urinary tract infection (pseudomonal)
Diarrhea
Colonic ileus
Secondary diagnosis:
Status post robotic radical prostatectomy
Status post CT-guided drainage of pelvic fluid collection
Essential hypertension
Hyperlipidemia
Patient is a 58-year-old male status post prostatectomy (05/10/2024) who presented to the ED with scrotal swelling, fever, urinary urgency and lower abdominal pain after removal of Cardona catheter on 05/19/2024. He was SIRS positive upon admission in
the ED. Abdomen/pelvis CT scan showed 12.4 cm extraperitoneal fluid collection anterior to the urinary bladder and 3.9 intraperitoneal fluid collection in the pelvic cul-de-sac. Patient had pseudomonal catheter associated urinary tract infection
extended to epididymis and impaired vesicourethral anastomotic healing which was treated with Zosyn and fluconazole. Patient initially had colonic ileus which was resolved after treatment with MiraLAX and Colace. Prevesicular fluid collection was
drained by interventional radiology that showed infected urinoma (Pseudomonas aeruginosa). Urology placed Cardona with additional sub-balloon fenestration which dramatically reduced urine exiting via percutaneous drain. Abdomen pelvis CT scan after
drainage showed significantly decreased size of perivesical fluid collection (measuring 4.5 cm), minimal ascites in the right paracolic gutter, and hepatic cysts. Patient white blood count down trended following antibiotic therapy (WBC 05/29/2024:
0.8). Scrotal swelling decreased during stay at hospital. Antibiotics were transitioned to oral ciprofloxacin 750 mg twice daily for 14 days. Patient to follow-up with urology 10 days after discharge for CT cystogram to reassess healing of
vesicoureteral anastomosis leak. Cardona catheter draining to stay at discharge.
Patient is medically stable to be discharged home today on ciprofloxacin 750 mg twice daily for additional 12 days. Patient to follow-up with urology regarding removal of Cardona catheter and drain.
Discharge Plan
-
Patient Disposition: Home with Home Care
Discharge Diagnosis/Procedures: Infected pelvic urinoma; Pseudomonas aeruginosa urinary tract infection (catheter associated); diarrhea; colonic ileus, essential hypertension, hyperlipidemia
Condition: Good
Diet: As tolerated
Activity: As tolerated
Driving Restrictions: As prior to admission
Bathing Restrictions: Keep drain dry
Others Tests: call [phone] to schedule 'CT Cystogram' on Tuesday 06/05 or Wednesday 06/06
Other Services: [facility]
Wound Care: Cardona and GOLDEN drain care
Activity Restrictions/Additional Instructions:
You need to find a PCP if going home with [facility]
Keep cardona and drain at discharge
Referrals:
NONE,* [Family Provider] - in less than 1 week (need to find a PCP given going home with [facility])
Prescriptions:
New
ciprofloxacin HCl 750 mg tablet
750 mg PO BID 13 Days Qty: 26 0RF
tamsulosin 0.4 mg Capsule
0.4 mg PO DAILY 7 Days Qty: 7 0RF
Continued
lisinopril 10 mg Tablet
10 mg PO DAILY
rosuvastatin 10 mg Tablet
10 mg PO DAILY
magnesium 200 mg Tablet
800 mg PO DAILY
Roy 3 With D3
1 tab PO DAILY
sildenafil 100 mg Tablet
100 mg PO DAILYPRN PRN (Reason: ED)
therapeutic multivitamin Tablet
1 tab PO DAILY
Visbiome 112.5 billion cell Capsule
1 cap PO DAILY
turmeric 400 mg Capsule
400 mg PO DAILY
tramadol 50 mg tablet
50 mg PO TIDPRN PRN (Reason: severe pain)
naproxen sodium [All Day Pain Relief] 220 mg tablet
440 mg PO BIDPRN PRN (Reason: mild pain)
Discharge Orders:
Discharge Patient (As Directed); Ordered 05/29/24
Ordered By: Paula Theodore
Discharge Date and Time
Discharge Date/Time: 05/29/24 14:13
Print Language: THAI

Documented by User: Shubham Maya MD 05/30/24 08:05
Discharge Summary
Discharge Data
Date of Admission: 05/20/24
Date of Discharge: 05/30/24
Hospital Course
Primary diagnosis:
Infected pelvic urinoma
Catheter associated urinary tract infection (pseudomonal)
Colonic ileus
Secondary diagnosis:
Status post robotic radical prostatectomy
Status post CT-guided drainage of pelvic fluid collection
Essential hypertension
Hyperlipidemia
Patient is a 58-year-old male status post prostatectomy (05/10/2024) who presented to the ED with scrotal swelling, fever, urinary urgency and lower abdominal pain after removal of Cardona catheter on 05/19/2024. He was SIRS positive upon admission in
the ED. Abdomen/pelvis CT scan showed 12.4 cm extraperitoneal fluid collection anterior to the urinary bladder and 3.9 intraperitoneal fluid collection in the pelvic cul-de-sac. Patient had pseudomonal catheter associated urinary tract infection
extended to epididymis and impaired vesicourethral anastomotic healing which was treated with Zosyn and fluconazole. Patient initially had colonic ileus which was resolved after treatment with MiraLAX and Colace. Prevesicular fluid collection was
drained by interventional radiology that showed infected urinoma (Pseudomonas aeruginosa). Urology placed Cardona with additional sub-balloon fenestration which dramatically reduced urine exiting via percutaneous drain. Abdomen pelvis CT scan after
drainage showed significantly decreased size of perivesical fluid collection (measuring 4.5 cm), minimal ascites in the right paracolic gutter, and hepatic cysts. Patient white blood count down trended following antibiotic therapy (WBC 05/29/2024:
0.8). Scrotal swelling decreased during stay at hospital. Antibiotics were transitioned to oral ciprofloxacin 750 mg twice daily for 14 days. Patient to follow-up with urology 10 days after discharge for CT cystogram to reassess healing of
vesicoureteral anastomosis leak. Cardona catheter draining to stay at discharge.
Patient is medically stable to be discharged home today on ciprofloxacin 750 mg twice daily for additional 12 days. Patient to follow-up with urology regarding removal of Cardona catheter and drain.
Discharge Plan
-
Patient Disposition: Home with Home Care
Discharge Diagnosis/Procedures: Infected pelvic urinoma; Pseudomonas aeruginosa urinary tract infection (catheter associated); diarrhea; colonic ileus, essential hypertension, hyperlipidemia
Condition: Good
Diet: As tolerated
Activity: As tolerated
Driving Restrictions: As prior to admission
Bathing Restrictions: Keep drain dry
Others Tests: call [phone] to schedule 'CT Cystogram' on Tuesday 06/05 or Wednesday 06/06
Other Services: VN
Wound Care: Cardona and GOLDEN drain care
Activity Restrictions/Additional Instructions:
You need to find a PCP if going home with [facility]
Keep cardona and drain at discharge
Referrals:
NONE,* [Family Provider] - in less than 1 week (need to find a PCP given going home with )
Prescriptions:
New
ciprofloxacin HCl 750 mg tablet
750 mg PO BID 13 Days Qty: 26 0RF
tamsulosin 0.4 mg Capsule
0.4 mg PO DAILY 7 Days Qty: 7 0RF
Continued
lisinopril 10 mg Tablet
10 mg PO DAILY
rosuvastatin 10 mg Tablet
10 mg PO DAILY
magnesium 200 mg Tablet
800 mg PO DAILY
Roy 3 With D3
1 tab PO DAILY
sildenafil 100 mg Tablet
100 mg PO DAILYPRN PRN (Reason: ED)
therapeutic multivitamin Tablet
1 tab PO DAILY
Visbiome 112.5 billion cell Capsule
1 cap PO DAILY
turmeric 400 mg Capsule
400 mg PO DAILY
tramadol 50 mg tablet
50 mg PO TIDPRN PRN (Reason: severe pain)
naproxen sodium [All Day Pain Relief] 220 mg tablet
440 mg PO BIDPRN PRN (Reason: mild pain)
Discharge Orders:
Discharge Patient (As Directed); Ordered 05/29/24
Ordered By: Paula Theodore
Discharge Date and Time
Discharge Date/Time: 05/29/24 14:13
Print Language: THAI
[2024-05-29] MEDS: CIPRO 250 MG PO (10:15)
--- NOTE | 2024-05-29 10:36 | W.PN.HOSP.TC ---
Addendum entered and electronically signed by Shubham Maya MD 05/29/24 15:54:
I saw and evaluated the patient. I reviewed the resident�s note and agree with findings and plan as documented in the resident�s note.
Patient without overnight complaints about any new complaints.
Tolerating diet without nausea vomiting. Having regular bowel movements which sometimes are loose but no further abdominal distention. No fever chills. No shortness of breath or chest pain.
Abdomen benign
Cardona catheter in which is draining clear urine.
Urology input noted.
ID input noted regarding antibiotics.
Will discharge patient home today as he is medically stable. Patient to follow-up with urology in 10 days for catheter removal assessment .
Total time of discharge 35-minute
Original Note:
Documented by User: Paula Theodore MD, Resident 05/29/24 15:37
Today's Communication/Plan
-
Plan for discharge
Continue Cipro 750 BD at discharge (for 12 days)
Cardona and drain to stay at discharge with nurse care at home
Urology follow-up for CT cystogram
Assessment / Plan
Assessment / Plan
IMPRESSION: 58-year-old male s/p prostatectomy (05/10/24). Scrotal swelling reduced. Cardona catheter and drain in place. Patient to be discharged today with urology follow-up ~one week after discharge.
PLAN:
pseudomonas aeruginosa UTI with pseudomonas pelvic abscess (Urethrovesical anastomosis leak and pelvic urinoma) (not related to urinary catheter--specimen collected prior to catheter being placed), blood culture no growth in 48 hours-- now on cipro
750mg for 12 days at d/c per ID - leukocytosis down---s/p IR drainage, repeat CT scan with improvement in fluid collection cultures with pseudomonas--apprec ID/urology--s/p drainage by IR (cultures ordered)--Pain medication as needed--cardona and
drain to stay at d/c. IR instructions for drain care
diarrhea--started cipro--resolved
Colonic ileus--Colace and MiraLAX (might need to hold with diarrhea)---Avoid opioid pain med as much as possible--advance diet--resolved
Essential hypertension--No changes prior to admission--continue lisinopril--Blood pressure is monitored and controlled
Hypercholesterolemia--Continue rosuvastatin
DVT prophylaxis Lovenox
CODE STATUS: Full code
Anticipated Discharge: Today
Subjective/Interval History
-
Date of Service: May 29, 2024
Objective Data
-
Labs:
Laboratory Results
05/29/24
04:50
WBC 6.8
Hgb 11.9 L
Hct 34.6 L
Plt Count 420 H
Sodium 136
Potassium 4.6
Chloride 104
Carbon Dioxide 23
BUN 17
Creatinine 1.0
Glucose 102 H
Calcium 8.8
Vital Signs:
Vital Signs
Temp Pulse Resp BP Pulse Ox
97.4 F 76 18 129/77 95
05/29/24 07:15 05/29/24 08:35 05/29/24 07:15 05/29/24 08:35 05/29/24 07:15
I&O
05/28/24 05/29/24 05/30/24
06:59 06:59 06:59
Intake Total 2880 / 2880 1345 / 1345
Output Total 2578 / 2578 1994
Balance 302 / 302 -650 / -650
Review of Systems
-
All other systems: Reviewed and negative
Physical Exam
-
General: Well Developed, Well Nourished and No Apparent Distress
HEENT: Normocephalic and Atraumatic
Respiratory: Clear to Auscultation; Negative Wheezes or Rhonchi
Cardiac: Regular Rhythm and S1/S2; Negative Murmur
GI: Soft, Nontender and Nondistended; Negative Normal Bowel Sounds (hyperactive)
Genito-urinary: Other (Scrotal swelling decreased compared to last few days)
Musculoskeletal: No Clubbing, No Cyanosis and No Edema
Skin: Warm
Neuro: Awake
Psych: Calm

Documented by User: Shubham Maya MD 05/29/24 15:52
Assessment / Plan
Assessment / Plan
IMPRESSION: 58-year-old male s/p prostatectomy (05/10/24). Scrotal swelling reduced. Cardona catheter and drain in place. Patient to be discharged today with urology follow-up ~one week after discharge.
PLAN:
pseudomonas aeruginosa CAUTI with pseudomonas pelvic abscess (Urethrovesical anastomosis leak and pelvic urinoma) , blood culture no growth in 48 hours-- now on cipro 750mg for 12 days at d/c per ID - leukocytosis down---s/p IR drainage, repeat CT
scan with improvement in fluid collection cultures with pseudomonas--apprec ID/urology--s/p drainage by IR (cultures ordered)--Pain medication as needed--cardona and drain to stay at d/c. IR instructions for drain care
Colonic ileus--Colace and MiraLAX (might need to hold with diarrhea)---Avoid opioid pain med as much as possible--advance diet--resolved
Essential hypertension--No changes prior to admission--continue lisinopril--Blood pressure is monitored and controlled
Hypercholesterolemia--Continue rosuvastatin
DVT prophylaxis Lovenox
CODE STATUS: Full code
--- NOTE | 2024-05-29 12:52 | CM ---
Addendum entered by Gregorio Anderson 05/29/24 13:28:
[facility] FAX # [phone]
Original Note:
Patient has been medically cleared for discharge to home with resumption of [facility] services. [facility] liaison notified of discharge. will transport home.
--- NOTE | 2024-05-29 12:56 | W.PN.URO.CBU ---
Today's Communication / Plan
-
home with cardona future cystogram 10 days
Assessment / Plan
-
58M post op robotic radical prostatectomy 05/10/24
Pseudomonal CAUTI --> extended to epididymis and impaired vesico-urethral anastomotic healing
With removal of Cardona post-op, anastomotic urine leak lead to accumulation of fluid cresencio-vesically, now s/p IR drainage of anterior collection
Removal of Cardona led to increased urine leakage, exiting via percutaneous drain.
Placement of Cardona with additional sub-balloon fenestration last evening has dramatically reduced urine exiting via percutaneous drain.
Diagnosis
-
Date of Service: May 29, 2024
-
Patient Diagnosis:
Post Op Day:
Patient Diagnosis:
Urethrovesical anastomosis leak --> pelvic urinoma, infected; drained percutaneously yesterday by IRad
Pseudomonal infection: lower genitourinary tract
Subjective
-
mn ishmael draionage
Objective
-
Vital Signs
Temp Pulse Resp BP Pulse Ox
97.4 F 76 18 129/77 95
05/29/24 07:15 05/29/24 08:35 05/29/24 07:15 05/29/24 08:35 05/29/24 07:15
Intake and Output
05/28/24 05/29/24 05/30/24
06:59 06:59 06:59
Intake Total 2880 / 2880 1345 / 1345
Output Total 2578 / 2578 1994
Balance 302 / 302 -650 / -650
Intake:
Oral fluids 2880 / 2880 1340 / 1340
Amount instilled into Drain (
Total)
Lower Abdomen Placed in IR
Output:
Drain Output (Total) 78 / 78 70 / 70
Lower Abdomen Placed in IR
Urine, Cardona 2500 / 2500 1925 / 1924
Laboratory Results
05/29/24 04:50
05/29/24 04:50
Review of Systems
-
: No Symptoms
Physical Exam
-
General - well developed, well nourished, no acute distress
Chest - clear bilaterally
Abdomen - soft, non-tender, positive bowel sounds, no CVAT, no incisional pain or distention
Genitalia - normal
Rectal - normal
Skin - warm & dry with no rash
Neuro - AOx3, no motor deficits
Extremities - no clubbing, no cyanosis, no edema
Incision - clean, dry
Dressing - clean, dry, intact
Care Review
Data Reviewed
Discussed with: Hospitalist and Nursing
== END 2024-05-29 14:13 | disposition home health service (06) | DRG 856 ==
LOC: 2 NORTH 18:34
PROVIDERS: Internal Medicine; Physician Assistant; Radiology Diagnostic Radiology; Radiology Vascular & Interventional Radiology; Student in an Organized Health Care Education/Training Program; ADMITTING PHYSICIAN Internal Medicine; CONSULT PHYSICIAN Specialist; CONSULT PHYSICIAN Student in an Organized Health Care Education/Training Program; EMERGENCY PHYSICIAN Emergency Medicine
PROC: 0W9J4ZX Drainage of Pelvic Cavity, Percutaneous Endoscopic Approach, Diagnostic (ICD-10-PCS; 2024-05-23)
DX: T81.43XA Infection following a procedure, organ and space surgical site, initial encounter (principal); A41.9 Sepsis, unspecified organism; K65.1 Peritoneal abscess; R65.20 Severe sepsis without septic shock; T83.518A Infection and inflammatory reaction due to other urinary catheter, initial encounter; N39.0 Urinary tract infection, site not specified; A04.8 Other specified bacterial intestinal infections; K56.7 Ileus, unspecified; E87.20 Acidosis, unspecified; N41.2 Abscess of prostate; Y84.6 Urinary catheterization as the cause of abnormal reaction of the patient, or of later complication, without mention of misadventure at the time of the procedure; I10 Essential (primary) hypertension; B96.5 Pseudomonas (aeruginosa) (mallei) (pseudomallei) as the cause of diseases classified elsewhere
CPT/HCPCS: 49406; 51701; 51798; 74177; 80048; 80053; 81003; 81015; 82570; 83605; 83735; 85025; 85027; 85610; 87015; 87040; 87070; 87075; 87077; 87086; 87186; 87205; 93005; 96361; 96374; 96375; 97116; 97162; 99152; 99153; 99285; Q9967

== ENCOUNTER → 2024-06-06 11:52 | Outpatient (REF) | payer BC, SELFPAY | LOC: RAD 11:52 | PROVIDERS: ATTENDING PHYSICIAN Specialist | DX: N99.89 Other postprocedural complications and disorders of genitourinary system (principal) | CPT/HCPCS: 72193; Q9967 ==